=== PATIENT | female | born 1970 | race Caucasian/White ===

== ENCOUNTER 2021-05-03 09:17 | Observation (INO) ==
--- NOTE | 2021-05-03 09:49 | Emergency Department Note ---
History of Present Illness General Chief complaint: Cardiac Assessment Stated complaint: L ARM PAIN Time Seen by Provider: 05/03/21 09:39 History of Present Illness Maximum Pain Intensity: 3 This is a 50-year-old female that presents to the emergency department via private vehicle with complaints of "left arm pain". Patient notes a history of 3 coronary artery stents which were placed in 2011 and 2012. She has been doing well since that time and compliant with her medications. The patient states that over the past few days she has been experiencing left arm discomfort that is intermittent. She also notes pain at times will radiate across her chest. The patient states that the last episode of pain in the left arm was earlier today around 7:30 AM. This lasted about half an hour. It was not exertional. No fevers or chills. Patient denies any pain at the present time. No known trauma or injury. Patient does note that the symptoms she has been experiencing over the past few days are similar to what she had leading up to her stent placements previously. Home Medications Medication Instructions Recorded Confirmed Type aspirin 81 mg tablet,delayed 81 mg PO DAILY 03/09/19 05/03/21 History release atorvastatin 80 mg tablet 80 mg PO QPM #90 tab 10/24/20 05/03/21 Rx lisinopril 20 mg tablet 20 mg PO DAILY #90 tab 10/24/20 05/03/21 Rx metoprolol tartrate 25 mg tablet 12.5 mg PO BID #90 tab 10/24/20 05/03/21 Rx nitroglycerin 0.4 mg sublingual 0.4 mg SL Q5M PRN #25 tab 10/24/20 05/03/21 Rx tablet (Nitrostat) Allergies Allergy/AdvReac Type Severity Reaction Status Date / Time No Known Drug Allergies Allergy Verified 05/03/21 10:43 Past Med/Surg History Medical History Coronary arteriosclerosis in [place] artery (04/03/13) Surgical History Stented coronary artery Family History Denies family history of Ovarian cancer Breast cancer Colorectal cancer Social History Smoking Status: Former smoker Tobacco Type: Cigarettes Hx Alcohol Use: Yes Feels Safe at Home: Yes Review of Systems A total of 10 systems reviewed and were otherwise negative Physical Exam Vital Signs Vital Signs - 24 hr 05/03/21 09:30 05/03/21 10:12 05/03/21 10:20 Temperature 36.7 C Temperature Source Skin Pulse Rate 63 53 L 65 Pulse Rate from SpO2 Sensor 53 L 62 Pulse Rhythm Regular Pulse Strength Normal Respiratory Rate 20 14 18 Respiratory Effort / Characteristics Non-Labored Spontaneous Respiratory Depth Normal Respiratory Pattern Regular Blood Pressure 153/91 H Blood Pressure Mean 111 Pulse Oximetry 95 95 94 Oxygen Delivery Method Room Air Sepsis Recent Fever Within 48 Hours No Sepsis New/Unexplained Change in Mental Status N/A Sepsis Action Taken by Nursing No Action Required 05/03/21 10:30 05/03/21 10:40 05/03/21 10:50 Temperature Temperature Source Pulse Rate 58 L 52 L 53 L Pulse Rate from SpO2 Sensor 55 L 53 L 53 L Pulse Rhythm Pulse Strength Respiratory Rate 17 16 15 Respiratory Effort / Characteristics Respiratory Depth Respiratory Pattern Blood Pressure Blood Pressure Mean Pulse Oximetry 93 96 94 Oxygen Delivery Method Sepsis Recent Fever Within 48 Hours Sepsis New/Unexplained Change in Mental Status Sepsis Action Taken by Nursing 05/03/21 11:00 05/03/21 11:10 Temperature Temperature Source Pulse Rate 51 L 55 L Pulse Rate from SpO2 Sensor 52 L 53 L Pulse Rhythm Pulse Strength Respiratory Rate 28 H 20 Respiratory Effort / Characteristics Respiratory Depth Respiratory Pattern Blood Pressure Blood Pressure Mean Pulse Oximetry 95 97 Oxygen Delivery Method Sepsis Recent Fever Within 48 Hours Sepsis New/Unexplained Change in Mental Status Sepsis Action Taken by Nursing VITAL SIGNS - Vital signs and nursing notes were reviewed. Stable and afebrile. GENERAL - 50-year-old female appearing her stated age who is in no acute distress. Communicates well with provider and answers questions appropriately. SKIN - Without rashes. No meningeal or petechial rash. The skin overlying the left upper extremity is unremarkable. HEAD - NC/AT. EYES - PERRL with EOMI bilaterally. Sclera anicteric. EARS - No deformities of external structures noted on gross examination bilaterally. NOSE - Midline and without cyanosis. No epistaxis or purulent drainage noted. MOUTH/OROPHARYNX - Without perioral cyanosis. NECK - Neck with FROM. No nuchal rigidity. LUNGS - Chest wall symmetric without accessory muscle use, intercostals retractions, or central cyanosis. Normal vesicular breath sounds CTA B/L. No wheezes, rales, or rhonchi appreciated. CARDIAC - RRR with S1/S2. No murmur, rubs, or gallops appreciated. ABDOMEN - Abdominal contour normal without pulsations or visible masses. BS normoactive all four quadrants. No tenderness, palpable masses, hepatosplenomegaly, or ascites noted. EXTREMITIES - No clubbing or peripheral cyanosis. +5/5 strength noted in UE/LE bilaterally. NEUROLOGIC - Cranial nerves II through XII grossly intact. PSYCH - A&O, and cooperates fully with examiner. Pt is very pleasant and interacts well with examiner. Medical Decision Making Laboratory Data Result diagrams: 05/03/21 09:50 05/03/21 09:50 Lab Results 05/03/21 05/03/21 05/03/21 Range/Units 09:50 09:50 09:50 WBC 8.01 (4.8-10.8) K/uL RBC 4.42 (4.2-5.4) M/uL Hgb 14.0 (12.0-16.0) g/dL Hct 41.1 (37-47) % MCV 93.0 (80-100) fL MCH 31.7 (25-34) pg MCHC 34.1 (32-36) g/dL RDW Std Deviation 46.6 H (36.4-46.3) fL RDW Coeff of Nickie 13.7 (11.5-14.5) % Plt Count 292 (130-400) K/uL MPV 10.0 (7.4-10.4) fL Immature Gran % (Auto) 0.2 % Neut % (Auto) 69.5 % Lymph % (Auto) 24.3 % [place] % (Auto) 4.9 % Eos % (Auto) 0.9 % Baso % (Auto) 0.2 % Neut # (Auto) 5.56 (1.4-6.5) K/uL Lymph # (Auto) 1.95 (1.2-3.4) K/uL [place] # (Auto) 0.39 (0.11-0.59) K/uL Eos # (Auto) 0.07 (0-0.5) K/uL Baso # (Auto) 0.02 (0-0.2) K/uL Immature Gran # (Auto) 0.02 (0.00-0.02) K/uL PT 9.8 (9.0-12.0) Seconds INR 1.0 (0.9-1.1) APTT 27.6 (21.0-31.0) Seconds PTT Ratio 1.0 Sodium 140 (136-145) mmol/L Potassium 4.1 (3.5-5.1) mmol/L Chloride 110 H (98-107) mmol/L Carbon Dioxide 24 (21-32) mmol/L Anion Gap 6.0 (3-11) BUN 10 (7-18) mg/dl Creatinine 0.80 (0.6-1.2) mg/dl Est Cr Clr Drug Dosing 98.4 ml/min Est GFR ( Amer) 101.0 ml/min Est GFR (Non-Af Amer) 87.2 ml/min BUN/Creatinine Ratio 12.5 (10-20) Glucose 98 (70-99) mg/dl Calcium 9.0 (8.5-10.1) mg/dl Magnesium 2.2 (1.8-2.4) mg/dl Total Bilirubin 0.4 (0.2-1) mg/dl AST 9 L (15-37) U/L ALT 18 (12-78) Alkaline Phosphatase 131 H (45-117) U/L Troponin I < 0.015 (0-0.045) ng/ml Total Protein 7.3 (6.4-8.2) gm/dl Albumin 3.3 L (3.4-5.0) gm/dl Globulin 4.0 (2.5-4.0) gm/dl Albumin/Globulin Ratio 0.8 L (0.9-2) TSH 1.450 (0.300-4.500) uIu/ml HCG, Qual (Negative) 05/03/21 Range/Units 09:50 WBC (4.8-10.8) K/uL RBC (4.2-5.4) M/uL Hgb (12.0-16.0) g/dL Hct (37-47) % MCV (80-100) fL MCH (25-34) pg MCHC (32-36) g/dL RDW Std Deviation (36.4-46.3) fL RDW Coeff of Nickie (11.5-14.5) % Plt Count (130-400) K/uL MPV (7.4-10.4) fL Immature Gran % (Auto) % Neut % (Auto) % Lymph % (Auto) % [place] % (Auto) % Eos % (Auto) % Baso % (Auto) % Neut # (Auto) (1.4-6.5) K/uL Lymph # (Auto) (1.2-3.4) K/uL [place] # (Auto) (0.11-0.59) K/uL Eos # (Auto) (0-0.5) K/uL Baso # (Auto) (0-0.2) K/uL Immature Gran # (Auto) (0.00-0.02) K/uL PT (9.0-12.0) Seconds INR (0.9-1.1) APTT (21.0-31.0) Seconds PTT Ratio Sodium (136-145) mmol/L Potassium (3.5-5.1) mmol/L Chloride (98-107) mmol/L Carbon Dioxide (21-32) mmol/L Anion Gap (3-11) BUN (7-18) mg/dl Creatinine (0.6-1.2) mg/dl Est Cr Clr Drug Dosing ml/min Est GFR ( Amer) ml/min Est GFR (Non-Af Amer) ml/min BUN/Creatinine Ratio (10-20) Glucose (70-99) mg/dl Calcium (8.5-10.1) mg/dl Magnesium (1.8-2.4) mg/dl Total Bilirubin (0.2-1) mg/dl AST (15-37) U/L ALT (12-78) Alkaline Phosphatase (45-117) U/L Troponin I (0-0.045) ng/ml Total Protein (6.4-8.2) gm/dl Albumin (3.4-5.0) gm/dl Globulin (2.5-4.0) gm/dl Albumin/Globulin Ratio (0.9-2) TSH (0.300-4.500) uIu/ml HCG, Qual Negative (Negative) Imaging Data Radiologist's Impression: Chest X-Ray 05/03/21 09:47 XR chest 1V portable CLINICAL HISTORY: L arm pain. Evaluate cardiopulmonary status COMPARISON STUDY: No previous studies for comparison. TECHNIQUE: 1 view of the chest FINDINGS: Single frontal view of the chest demonstrates the cardiomediastinal silhouette to be within normal limits. The lungs are clear of alveolar opacities. There is no evidence for pleural effusion. There is no evidence for vascular congestion. There is no acute osseous pathology. IMPRESSION: No acute cardiopulmonary disease. ACT 112: Negative or not required by law. Electronically signed by: Gucci Black M.D. 05/03/2021 10:04 AM MDM Narrative Patient was seen and evaluated as above in room C01. Review was performed of nursing notes and vital signs. I did review pertinent previous visits and patient history. After obtaining a thorough history and physical examination the above work up was performed. Patient patient is pain-free at this time. She is resting comfortably. Vital signs stable. Patient presents to us today with a few days of left arm pain. This does feel similar to symptoms she had leading up to her previous heart catheterization and stent placements. Options of care were discussed with the patient. IV access was established. Labs were drawn. No leukocytosis or concerning anemia. No emergent metabolic disturbance. Troponin x1 -. With the patient's heart history it is felt that further evaluation and management in the inpatient setting is warranted. Case discussed with the hospitalist. Please refer to further documentation regarding her stay. Patient amenable to plan of care. Heart Score: 4 EKG was reviewed by myself and found to be sinus bradycardia at a rate of 49 bpm and per my interpretation reveals no ST elevation. QTc 406. QRS 106. This was compared to EKG of April 03, 2013. Second EKG performed at 11:10 AM reveals sinus bradycardia rate of 49 bpm. QTc 446. QRS 104. An order was placed for continuous cardiac monitoring. The monitor shows a rate of 63 with sinus rhythm. GCS: 15 In the evaluation and treatment of this patient, the following differential diagnoses were considered: [place], ASC, Dysrhythmia, Angina, Mediastinitis, GERD, Esophagitis, PE, Pneumonia, Bronchitis, Costochondritis, Rib Fracture, [place], among others. Impression & Plan Arm pain, left, Intermittent chest pain, History of heart artery stent Discharge Plan Visit Data Chief Complaint: Cardiac Assessment Stated Complaint: L ARM PAIN ED Provider: Gustavo Phelps ED Midlevel Provider: Marquez Rodarte Discharge Problem: Arm pain, left, Intermittent chest pain, History of heart artery stent Patient Disposition: Admitted As Inpatient Condition: Good Forms Stand Alone Forms: My [facility] Prescriptions Prescriptions: No Action aspirin 81 mg tablet,delayed release (DR/EC) 81 mg PO DAILY RF: 0 atorvastatin 80 mg tablet 80 mg PO QPM Qty: 90 RF: 3 lisinopril 20 mg tablet 20 mg PO DAILY Qty: 90 RF: 3 metoprolol tartrate 25 mg tablet 12.5 mg PO BID Qty: 90 RF: 3 nitroglycerin [Nitrostat] 0.4 mg tablet, sublingual 0.4 mg SL Q5M PRN (Reason: chest pain) Qty: 25 RF: 5 Referrals Referrals: Anahi Jose CRNP [Primary Care Provider] -
[2021-05-03 10:01] LABS: Basophils # (auto) 0.02 K/uL (0-0.2); Basophils % (auto) 0.2 %; Eosinophils # (auto) 0.07 K/uL (0-0.5); Eosinophils % (auto) 0.9 %; Hematocrit (blood only) 41.1 % (37-47); Immature Granulocytes # (auto) 0.02 K/uL (0.00-0.02); Immature Granulocytes % (auto) 0.2 %; Lymphocytes # (auto) 1.95 K/uL (1.2-3.4); Lymphocytes % (auto) 24.3 %; Mean Corpuscular Hemoglobin 31.7 pg (25-34); Mean Corpuscular Hgb Conc 34.1 g/dL (32-36); Monocytes # (auto) 0.39 K/uL (0.11-0.59); Monocytes % (auto) 4.9 %; Neutrophils # (auto) 5.56 K/uL (1.4-6.5); Neutrophils % (auto) 69.5 %; Platelet Count 292 K/uL (130-400); RDW Coefficient of Variation 13.7 % (11.5-14.5); RDW Standard Deviation 46.6 fL (36.4-46.3); Red Blood Count 4.42 M/uL (4.2-5.4); White Blood Count 8.01 K/uL (4.8-10.8)
--- NOTE | 2021-05-03 10:05 | XRay Report ---
XR chest 1V portable CLINICAL HISTORY: L arm pain. Evaluate cardiopulmonary status COMPARISON STUDY: No previous studies for comparison. TECHNIQUE: 1 view of the chest FINDINGS: Single frontal view of the chest demonstrates the cardiomediastinal silhouette to be within normal li mits. The lungs are clear of alveolar opacities. There is no evidence for pleural effusion. There is no evidence for vascular congestion. There is no acute osseous pathology. IMPRESSION: No acute cardiopulmonary disease. ACT 112: Negative or not required by law. Electronically signed by: Gucci Black M.D. 05/03/2021 10:04 AM
[2021-05-03 10:11] LABS: Partial Thromboplastin Time 27.6 Seconds (21.0-31.0); Prothrombin Time 9.8 Seconds (9.0-12.0)
[2021-05-03 10:19] LABS: Alanine Aminotransferase 18 (12-78); Albumin Level 3.3 gm/dl (3.4-5.0); Aspartate Aminotransferase 9 U/L (15-37); BUN Creatinine Ratio 12.5 (10-20); Blood Urea Nitrogen 10 mg/dl (7-18); Carbon Dioxide 24 mmol/L (21-32); Chloride 110 mmol/L (98-107); Creatinine Clr Calc Pharmacy 98.4 ml/min; Est GFR (Non-African American) 87.2 ml/min; Glucose 98 mg/dl (70-99); Magnesium 2.2 mg/dl (1.8-2.4); Potassium 4.1 mmol/L (3.5-5.1); Sodium 140 mmol/L (136-145)
[2021-05-03 10:21] LABS: Pregnancy Test, Serum Negative (Negative)
[2021-05-03 10:30] LABS: Albumin Globulin Ratio 0.8 (0.9-2); Alkaline Phosphatase 131 U/L (45-117); Bilirubin,Total 0.4 mg/dl (0.2-1); Total Protein 7.3 gm/dl (6.4-8.2); Troponin I < 0.015 ng/ml (0-0.045)
--- NOTE | 2021-05-03 11:29 | History & Physical Report ---
Date of Service May 03, 2021 Assessment & Plan (1) Arm pain, left: (2) Intermittent chest pain: (3) CAD (coronary artery disease): Plan: Mrs. Arzola is 50-year-old female with a history of CAD s/p LAD Drug-Eluting Stent 2011, 2 Mid RCA Drug-Eluting Stents, PDA Drug-Eluting Stent 2012, Incomplete RBBB, and Dyslipidemia who presented acutely to [facility] this morning with possible Angina Pectoris. She describes increased fatigue in recent weeks followed by the development of intermittent left arm pressure that occasionally radiates across her chest to midline, and she has also experienced "indigestion" off and on which is unusual for her. She has tried Tums without relief. Her left arm pressure and occasional chest discomfort seem to come and go at random, are not related to exertion, can last a few minutes up to 30 minutes, and she has not experienced any associated symptoms. She specifically denies any associated nausea, vomiting, diaphoresis, dyspnea, unusual dyspnea on exertion, palpitations, syncope, or near syncope. Her last episode of chest discomfort was this morning at approximately 0730. She is concerned because her symptoms are similar to what she experienced prior to her stent placements in the past. She was previously walking 3 miles 5 times a week during the summer and early fall 2020-- but because she has been feeling the way she is, she has not been exercising routinely since then. She has not noticed a drop-off in her exercise tolerance, but again she is not exercising to any significant extent. Patient remains compliant with her medications and has not had any adverse side effects. Evaluation in emergency room shows that her initial Troponin I is undetectable at < 0.015 ng/mL. Chest x-ray shows no acute cardiopulmonary processes. Her EKG's show sinus bradycardia with an incomplete RBBB, no ST segment deviations. CBC with diff shows normal WBC count. Hemoglobin is 14.0 g/dL, hematocrit is normal at 41.1%. Platelet count 292 K/uL. Serum creatinine is 0.80 ng/mL with a BUN of 10 mg/dL. Chloride is slightly elevated at 110 mmol/L, otherwise electrolytes are within normal limits. TSH is normal. Recommend the following: -- Admit to PCU on telemetry. -- Serial Troponin I levels. -- Serial EKG's and EKG as needed for chest/arm pain. -- Check an Echocardiogram. -- Continue Lopressor 12.5 mg b.i.d.. -- Continue Atorvastatin 80 mg daily. -- Continue Aspirin 81 mg daily. -- Continue Lisinopril 20 mg daily. -- Lovenox at DVT prophylaxis dose. -- If any recurrent chest pain, arm pressure or suspected angina -- convert to Heparin drip, add topical nitrate, use sublingual nitroglycerin. -- If troponin's remain negative we will likely pursue stress echocardiogram tomorrow or could consider cardiac catheterization since her symptoms are reminiscent of prior angina pectoris. -- If troponin I increases, we will pursue cardiac catheterization +/- PCI. (4) History of heart artery stent: Plan: -- CAD s/p Proximal LAD Drug-Eluting Stent 2011 in the setting of unstable angina with new posterior wall motion abnormality. -- Patient presented in Fall 2012 with stable angina pectoris and underwent deployment of 2 Mid RCA Drug-Eluting Stents and a R PDA Drug-Eluting Stent. -- Right femoral artery used for access in 2012 due to severe radial artery spasm during prior heart catheterization in 2011. (5) Dyslipidemia: Plan: Fasting Lipid Panel 10/06/20 showed Total Cholesterol of 125 mg/dL, HDL 41 mg/dL, and an LDL 68 mg/dL. -- Continue Atorvastatin 80 mg daily. History of Present Illness Chief Complaint: -- Intermittent Left Arm Pressure. -- Intermittent Chest Pain. -- CAD s/p LAD Stent 2011, s/p Mid RCA Stents x 2 and PDA Stent in 2012. Primary Care Provider: GAVIN Borrego Mrs. Arzola is 50-year-old female with a history of CAD s/p LAD Drug-Eluting Stent 2011, 2 Mid RCA Drug-Eluting Stents, PDA Drug-Eluting Stent 2012, Incomplete RBBB, and Dyslipidemia who presented acutely to [facility] this morning complaining of increased fatigue in recent weeks followed by the development of intermittent left arm pressure that occasionally radiates across her chest to midline, and she has also experienced "indigestion" off and on which is unusual for her. She has tried Tums without relief. Her left arm pressure and occasional chest discomfort seem to come and go at random, are not related to exertion, can last a few minutes up to 30 minutes, and she has not experienced any associated symptoms. She specifically denies any associated nausea, vomiting, diaphoresis, dyspnea, unusual dyspnea on exertion, palpitations, syncope, or near syncope. She is concerned because her symptoms are similar to what she experienced prior to her stent placement in the past. 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 She was previously walking 3 miles 5 times a week -- but because she has been feeling the way she is, she has not been exercising routinely. She remains compliant with her medications and has not had any adverse side effects. HISTORICAL BACKGROUND: Patient's cardiac history dates back to 2011 when her LAD stent was deployed in the setting of unstable angina with new posterior wall motion abnormality on Echo. She later had recurrent stable angina in the fall and underwent multiple stent placement to her RCA and PDA in March of 2013. CARDIAC CATHETERIZATION (03/2013): -- Right femoral artery used for access due to severe radial artery spasm during prior heart catheterization. -- LMCA -- No significant disease. -- LAD -- Patent proximal stent without significant distal disease. -- LCx -- Minimal mild disease. -- RCA -- Sequential 80% and 70% stenoses in the mid segment. -- R PDA -- 70% ostial stenosis. -- PCI to Mid RCA with 3 0 x 23, 3.0 x 8 Xience drug-eluting stents; PCI to PDA with 2.25 x 8 Xience JAY. -- PCI (03/2012): 3.0 x 33 Xience drug-eluting stent to proximal LAD, post dilated to 3.25 mm. Allergies Allergy/AdvReac Type Severity Reaction Status Date / Time No Known Drug Allergies Allergy Verified 05/03/21 10:43 Home Medications Medication Instructions Recorded Confirmed Type aspirin 81 mg tablet,delayed 81 mg PO DAILY 03/09/19 05/03/21 History release atorvastatin 80 mg tablet 80 mg PO QPM #90 tab 10/24/20 05/03/21 Rx lisinopril 20 mg tablet 20 mg PO DAILY #90 tab 10/24/20 05/03/21 Rx metoprolol tartrate 25 mg tablet 12.5 mg PO BID #90 tab 10/24/20 05/03/21 Rx nitroglycerin 0.4 mg sublingual 0.4 mg SL Q5M PRN #25 tab 10/24/20 05/03/21 Rx tablet (Nitrostat) Past Med/Surg History Medical History CAD (coronary artery disease) Dyslipidemia Hypertension Surgical History (Updated 05/03/21 @ 15:53 by Kirby Serna MD) Stented coronary artery Family History Denies family history of Ovarian cancer Breast cancer Colorectal cancer Social History Smoking Status: Former smoker Tobacco Type: Cigarettes Hx Alcohol Use: No Hx Substance Use: No Preferred Language: Finnish Communication Ability: Effective 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 Physical Exam Physical Exam: GENERAL: Patient in no acute distress. HEENT: Head is atraumatic, normocephalic. Sclerae anicteric. EOM's intact. Facies symmetric. No perioral cyanosis. NECK: No JVD. JVP is not elevated. Carotid upstrokes are + 2 bilaterally without obvious bruits. CHEST/LUNGS: Clear to auscultation throughout all lung alejandre. No wheezes, rales, or crackles. CVS: S1 and S2 are regular, bradycardic at 52 bpm. No obvious murmurs, gallops, or rubs. PMI is nonplpable. No lifts, heaves, or thrills. No abdominal aortic or renal bruits. ABDOMINAL EXAM: Bowel sounds are present. No masses, organomegaly, or tenderness. EXTREMITIES: No clubbing or cyanosis. No edema. Intact posterior tibial and radial pulses bilaterally. Stevo's test is positive for both right radial and right ulnar arterial reflow. Right femoral artery upstroke +2. NEUROLOGIC EXAM: Patient is awake, alert, and oriented. Pleasant and cooperative. Answers questions appropriately. Speech is clear. Normal movement in all 4 extremities. Gait pattern was not assessed. Water Quality Tester shows sinus bradycardia to normal sinus rhythm. EKG 05/03/21 at 11:10:56: -- Sinus bradycardia at 49 bpm, incomplete RBBB. -- When compared to earlier tracing; No significant change. EKG 05/03/21 at 09:40:16: -- Sinus bradycardia at 49 bpm, incomplete RBBB. -- When compared to 04/03/2013 tracing; heart rate has decreased by 32 bpm and incomplete RBBB has replaced a right bundle branch block. Results & Data Results & Data ([facility]) Vital Signs (Past 12 Hours) Vital Signs Temp Pulse Pulse Resp BP BP Pulse Ox 05/03/21 11:12 57 L 57 L 18 141/95 H 96 05/03/21 11:10 55 L 20 97 05/03/21 11:00 51 L 28 H 95 05/03/21 10:50 53 L 15 94 05/03/21 10:40 52 L 16 96 05/03/21 10:30 58 L 17 93 05/03/21 10:20 65 18 94 05/03/21 10:12 53 L 14 95 05/03/21 09:30 36.7 C 63 20 153/91 H 95 Laboratory Results Laboratory Results - last 24 hr 05/03/21 05/03/21 05/03/21 09:50 09:50 09:50 WBC 8.01 RBC 4.42 Hgb 14.0 Hct 41.1 MCV 93.0 MCH 31.7 MCHC 34.1 RDW Std Deviation 46.6 H RDW Coeff of Nickie 13.7 Plt Count 292 MPV 10.0 Immature Gran % (Auto) 0.2 Neut % (Auto) 69.5 Lymph % (Auto) 24.3 [place] % (Auto) 4.9 Eos % (Auto) 0.9 Baso % (Auto) 0.2 Neut # (Auto) 5.56 Lymph # (Auto) 1.95 [place] # (Auto) 0.39 Eos # (Auto) 0.07 Baso # (Auto) 0.02 Immature Gran # (Auto) 0.02 PT 9.8 INR 1.0 APTT 27.6 PTT Ratio 1.0 Sodium 140 Potassium 4.1 Chloride 110 H Carbon Dioxide 24 Anion Gap 6.0 BUN 10 Creatinine 0.80 Est Cr Clr Drug Dosing 98.4 Est GFR ( Amer) 101.0 Est GFR (Non-Af Amer) 87.2 BUN/Creatinine Ratio 12.5 Glucose 98 Calcium 9.0 Magnesium 2.2 Total Bilirubin 0.4 AST 9 L ALT 18 Alkaline Phosphatase 131 H Troponin I < 0.015 Total Protein 7.3 Albumin 3.3 L Globulin 4.0 Albumin/Globulin Ratio 0.8 L TSH 1.450 HCG, Qual SARS-CoV-2, RNA, NAAT 05/03/21 05/03/21 09:50 10:59 WBC RBC Hgb Hct MCV MCH MCHC RDW Std Deviation RDW Coeff of Nickie Plt Count MPV Immature Gran % (Auto) Neut % (Auto) Lymph % (Auto) [place] % (Auto) Eos % (Auto) Baso % (Auto) Neut # (Auto) Lymph # (Auto) Major # (Auto) Eos # (Auto) Baso # (Auto) Immature Gran # (Auto) PT INR APTT PTT Ratio Sodium Potassium Chloride Carbon Dioxide Anion Gap BUN Creatinine Est Cr Clr Drug Dosing Est GFR ( Amer) Est GFR (Non-Af Amer) BUN/Creatinine Ratio Glucose Calcium Magnesium Total Bilirubin AST ALT Alkaline Phosphatase Troponin I Total Protein Albumin Globulin Albumin/Globulin Ratio TSH HCG, Qual Negative SARS-CoV-2, RNA, NAAT Pending Diagnostic Findings CXR 05/03/21: Single frontal view of the chest demonstrates the cardiomediastinal silhouette to be within normal limits. The lungs are clear of alveolar opacities. There is no evidence for pleural effusion. There is no evidence for vascular congestion. There is no acute osseous pathology. IMPRESSION: -- No acute cardiopulmonary disease. Medications Administered Medications aspirin 81 mg tablet,delayed release 81 mg PO DAILY 03/09/19 [History Confirmed 05/03/21] atorvastatin 80 mg tablet 80 mg PO QPM #90 tab 10/24/20 [Rx Confirmed 05/03/21] lisinopril 20 mg tablet 20 mg PO DAILY #90 tab 10/24/20 [Rx Confirmed 05/03/21] metoprolol tartrate 25 mg tablet 12.5 mg PO BID #90 tab 10/24/20 [Rx Confirmed 05/03/21] nitroglycerin 0.4 mg sublingual tablet (Nitrostat) 0.4 mg SL Q5M PRN #25 tab 10/24/20 [Rx Confirmed 05/03/21] Code Status & VTE Plan Code Status Full Code VTE Prophylaxis Plan VTE Prophylaxis will be ordered: Yes Supervising Physician Co-Signing Physician Notes I personally saw and examined the patient. I verified all mora points and agree with Jaime Stern PA-C with the following exceptions and/or additions: 50 year old female admission for chest pain radiating to left arm consistent with her prior CA. Reoccurred again in the emergency room at rest. O/E No acute distress, WD/WN, HS 1+2, no murmurs, Chest CTAB, Abdo SNT calves SNT A/P NSTEMI vs. unstable angina - history consistent with this. Started on heparin IV low dose bolus and drip, ASA 324mg PO and nitro paste. Discussed with Dr Malik and patient will be taken to the labor commissioner today. Appreciate ongoing cariology management. PG Care Time/CCT Total # of Minutes Spent Total Time Spent with Patient: Total time spent is greater than 50% in coordination of care (as documented) at patient's floor/unit and/or counseling patient:35 Coding Level of Care Code INT OBSERVATION CARE 70M LVL 3 Diagnoses Arm pain, left M79.602 Intermittent chest pain R07.9 CAD (coronary artery disease) I25.10 History of heart artery stent Z95.5 Dyslipidemia E78.5 Time Spent (min) 55
[2021-05-03] MEDS ORDERED: ASPIRIN CHEW 324 MG PO STA (12:19)
[2021-05-03] MEDS ORDERED: NITROGLYCERIN 2% OINTMENT 30GM TUBE EXT SCH (12:30)
[2021-05-03] MEDS ORDERED: HEPARIN SOD (PORCINE) 1000 UNIT/ML IV ONE (12:33)
[2021-05-03] MEDS ORDERED: HEPARIN 25000 UNIT/500 ML D5W IV ONE (12:38)
[2021-05-03] MEDS ORDERED: HEPARIN SOD (PORCINE) 1000 UNIT/ML ONE (12:46)
[2021-05-03] MEDS: Heparin IV Adult Wt-Based Low-Dose WITH Bolus Protocol IV SCH ×2 (12:54→13:44)
[2021-05-03] MEDS ORDERED: HEPARIN SODIUM/DEXTROSE 25,000 UNITS/500 ML BAG IV SCH (13:30)
[2021-05-03] MEDS ORDERED: fentaNYL citrate 100 MCG/2 ML VIAL ONE (15:28)
[2021-05-03] MEDS ORDERED: niCARdipine HCL INJ 2.5 MG/ML 10 ML AMP ONE (15:28)
[2021-05-03] MEDS ORDERED: NITROGLYCERIN/D5W 100MCG/ML 20ML SYR ONE (15:28)
[2021-05-03] MEDS ORDERED: HEPARIN (PORCINE) 1000 UNIT/ML 10 ML (CATH LAB USE ONLY) ONE (15:28)
[2021-05-03] MEDS ORDERED: MIDAZOLAM HCL 1 MG/ML 2ML VIAL ONE (15:28)
[2021-05-03] MEDS ORDERED: NITROGLYCERIN SL 0.4 MG/TAB TAB SL PRN (15:31)
[2021-05-03] MEDS ORDERED: ZOLPIDEM TARTRATE 5 MG TAB PO PRN (15:31)
[2021-05-03] MEDS ORDERED: MoRPHine SULFATE 2 MG/ML CARP IV PRN (15:31)
[2021-05-03] MEDS ORDERED: MAGNESIUM HYDROXIDE SUSP 30 ML UDC PO PRN (15:31)
[2021-05-03] MEDS ORDERED: ENOXAPARIN INJ 40 MG/0.4 ML SYR SQ SCH (15:31)
[2021-05-03] MEDS ORDERED: ONDANSETRON INJ 2 MG/ML 2 ML VIAL IV PRN (15:31)
[2021-05-03] MEDS ORDERED: POLYETHYLENE (MIRALAX) 17 GM PACK PO PRN (15:31)
[2021-05-03] MEDS ORDERED: ALUMINUM/MAGNESIUM SUSP 30 ML UDC PO PRN (15:31)
--- NOTE | 2021-05-03 15:48 | Cardiology Consultation ---
Date of Consultation May 03, 2021 Assessment & Plan (1) Unstable angina: (2) CAD (coronary artery disease): (3) Stented coronary artery: (4) Dyslipidemia: (5) Hypertension: ASSESSMENT/PLAN: 1. Unstable angina: Symptoms are concerning for crescendo angina including rest symptoms today. Symptoms resolved with nitroglycerin paste. Thus far, troponins are undetectable, ECG without dynamic changes, and echo with normal wall motion. Symptoms are the same as prior angina. On heparin drip as per admitting service. Received aspirin 324 mg p.o. x1. Well beta blocked. Recommend cardiac catheterization. Risks and benefits discussed with her in detail. She was made aware that CT surgery is not available at this facility. She is agreeable to proceed with cardiac catheterization and PCI, if deemed appropriate. 2. CAD s/p LAD, RCA, PDA PCI: Symptoms consistent with prior angina as noted above. Continue aspirin 81 mg daily indefinitely. Continue beta-shamika as tolerated. Continue high-intensity statin therapy. Plan as above. 3. Hypertension: Blood pressure mildly elevated. Can adjust antihypertensive agents if necessary following catheterization. 4. Dyslipidemia: Continue high-intensity statin therapy. 5. Disposition: Cardiac catheterization pending. Plan of care discussed with admitting hospitalist service, Mr. Stern and Dr. Veliz. Highly complex medical issues. Thank you for allowing me to participate in the care of your patient. Please talat l for any other questions or concerns. Sincerely, Jw Serna M.D. History of Present Illness Reason for Consultation: Unstable angina Requesting Physician: Mr. Ramseyeler Attending Physician: Aleksey Veliz MD History of Present Illness Mrs. Arzola is a very pleasant 50-year-old female with a history significant for multivessel CAD s/p LAD, RCA, PDA PCI, hypertension, and dyslipidemia. Her primary credit historian is Dr. Buchanan. In 2011 she developed unstable angina and underwent lad PCI with 3 x 33 mm Xience JAY. In 2012, she developed repeat angina and underwent PCI of mid RCA with 3 x 23 and 3 x 8 mm Xience JAY, including PCI of PDA with 2.25 x 8 mm Xience JAY. Each time she had PCI, her symptoms completely resolved. Angina was described as left chest and left arm tightness/pressure. Over the past week, she developed similar symptoms. Initially symptoms began only with exertion such as carrying the laundry up a flight of stairs. Symptoms would begin in her left arm described as a pressure that would radiate to the substernal area of her chest. She also has been feeling much more tired, which also occurred in 2011 and 2012 prior to PCI. Symptomshave increased in frequency and with less exertion. Symptoms last up to 20 minutes before spontaneously resolving. She developed symptoms last night while walking in a store. She had more symptoms today when simply walking about her house. There is associated dyspnea with more strenuous activity. When she came to the emergency department, she was free from symptoms but developed left arm pressure while laying in her bed. Nitroglycerin paste was applied which quickly resolved her symptoms. She has not had any recurrent symptoms since then. She denies syncope, near-syncope, palpitations, edema, shortness of breath at rest, orthopnea, melena, hematochezia, hematuria, or other bleeding. Review of systems: As above. Review of systems otherwise negative/unre markable. Family history: Father had CT in late 30s and underwent CABG. Mother had CT in her 60s and underwent CABG. Social history: She quit smoking in 2011 after smoking 0.5 pack per day. Rare alcohol. No drugs. Lives at home with her and 2 adult children. 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 She was unaccompanied in her ER room. Allergies Allergy/AdvReac Type Severity Reaction Status Date / Time No Known Drug Allergies Allergy Verified 05/03/21 10:43 Home Medications Medication Instructions Recorded Confirmed Type aspirin 81 mg tablet,delayed 81 mg PO DAILY 03/09/19 05/03/21 History release atorvastatin 80 mg tablet 80 mg PO QPM #90 tab 10/24/20 05/03/21 Rx lisinopril 20 mg tablet 20 mg PO DAILY #90 tab 10/24/20 05/03/21 Rx metoprolol tartrate 25 mg tablet 12.5 mg PO BID #90 tab 10/24/20 05/03/21 Rx nitroglycerin 0.4 mg sublingual 0.4 mg SL Q5M PRN #25 tab 10/24/20 05/03/21 Rx tablet (Nitrostat) Patient History Medical History CAD (coronary artery disease) Dyslipidemia Hypertension Surgical History (Updated 05/03/21 @ 15:53 by Kirby Serna MD) Stented coronary artery Family History Denies family history of Ovarian cancer Breast cancer Colorectal cancer Social History Smoking Status: Former smoker Tobacco Type: Cigarettes Hx Alcohol Use: Yes Hx Substance Use: No Feels Safe at Home: Yes Physical Exam Physical Exam: Gen.: No acute distress. Alert and oriented. HEENT: Anicteric sclera. Neck: No JVD. No bruits. Normal carotid upstrokes bilaterally. Cardiac: PMI was nonpalpable. No ventricular heave. Regular in the upper 50s. Normal S1-S2. No murmurs, rubs, or gallops. Pulmonary: Clear to auscultation bilaterally without wheezes, rales, or rhonchi. Abdomen: Soft, nontender, nondistended, with normoactive bowel sounds. No bruits noted. Extremities: 2+ radial pulses bilaterally. 2+ posterior tibialis pulses bilaterally. No edema or cyanosis. Psychiatric: Affect appears appropriate. Chest: Nontender to palpation. Results & Data ([facility]) Vital Signs (Past 12 Hours) Vital Signs Temp Pulse Pulse Resp BP BP Pulse Ox 05/03/21 15:10 57 L 15 95 05/03/21 15:00 58 L 17 146/94 H 95 05/03/21 14:50 64 19 96 05/03/21 14:30 46 L 15 98 05/03/21 14:20 56 L 15 95 05/03/21 14:10 53 L 13 96 05/03/21 14:00 58 L 22 05/03/21 13:50 53 L 18 97 05/03/21 13:40 61 14 96 05/03/21 13:30 52 L 18 05/03/21 13:20 50 L 14 98 05/03/21 13:10 54 L 19 96 05/03/21 13:00 52 L 21 05/03/21 12:50 50 L 16 97 05/03/21 12:40 54 L 18 97 05/03/21 12:30 51 L 18 05/03/21 12:20 56 L 18 96 05/03/21 12:10 50 L 13 05/03/21 12:00 52 L 18 05/03/21 11:50 67 21 05/03/21 11:40 55 L 16 96 05/03/21 11:30 50 L 12 05/03/21 11:20 50 L 15 96 05/03/21 11:12 57 L 57 L 18 141/95 H 96 05/03/21 11:10 55 L 20 97 05/03/21 11:00 51 L 28 H 95 05/03/21 10:50 53 L 15 94 05/03/21 10:40 52 L 16 96 05/03/21 10:30 58 L 17 93 05/03/21 10:20 65 18 94 05/03/21 10:12 53 L 14 95 05/03/21 09:30 36.7 C 63 20 153/91 H 95 Laboratory Results Laboratory Results - last 24 hr 05/03/21 05/03/21 05/03/21 09:50 09:50 09:50 WBC 8.01 RBC 4.42 Hgb 14.0 Hct 41.1 MCV 93.0 MCH 31.7 MCHC 34.1 RDW Std Deviation 46.6 H RDW Coeff of Nickie 13.7 Plt Count 292 MPV 10.0 Immature Gran % (Auto) 0.2 Neut % (Auto) 69.5 Lymph % (Auto) 24.3 [place] % (Auto) 4.9 Eos % (Auto) 0.9 Baso % (Auto) 0.2 Neut # (Auto) 5.56 Lymph # (Auto) 1.95 [place] # (Auto) 0.39 Eos # (Auto) 0.07 Baso # (Auto) 0.02 Immature Gran # (Auto) 0.02 PT 9.8 INR 1.0 APTT 27.6 PTT Ratio 1.0 Sodium 140 Potassium 4.1 Chloride 110 H Carbon Dioxide 24 Anion Gap 6.0 BUN 10 Creatinine 0.80 Est Cr Clr Drug Dosing 98.4 Est GFR ( Amer) 101.0 Est GFR (Non-Af Amer) 87.2 BUN/Creatinine Ratio 12.5 Glucose 98 Calcium 9.0 Magnesium 2.2 Total Bilirubin 0.4 AST 9 L ALT 18 Alkaline Phosphatase 131 H Troponin I < 0.015 Total Protein 7.3 Albumin 3.3 L Globulin 4.0 Albumin/Globulin Ratio 0.8 L TSH 1.450 HCG, Qual SARS-CoV-2, RNA, NAAT 05/03/21 05/03/21 09:50 10:59 WBC RBC Hgb Hct MCV MCH MCHC RDW Std Deviation RDW Coeff of Nickie Plt Count MPV Immature Gran % (Auto) Neut % (Auto) Lymph % (Auto) [place] % (Auto) Eos % (Auto) Baso % (Auto) Neut # (Auto) Lymph # (Auto) [place] # (Auto) Eos # (Auto) Baso # (Auto) Immature Gran # (Auto) PT INR APTT PTT Ratio Sodium Potassium Chloride Carbon Dioxide Anion Gap BUN Creatinine Est Cr Clr Drug Dosing Est GFR ( Amer) Est GFR (Non-Af Amer) BUN/Creatinine Ratio Glucose Calcium Magnesium Total Bilirubin AST ALT Alkaline Phosphatase Troponin I Total Protein Albumin Globulin Albumin/Globulin Ratio TSH HCG, Qual Negative SARS-CoV-2, RNA, NAAT NEGATIVE Diagnostic Findings Cardiac catheterization report 04/03/2013 reviewed: Lad luminal irregularities. Proximal/mid LAD stent patent. Om 2 inferior branch 10-20%. Mid RCA sequential 80 and 70% stenotic lesions. Ostial PDA 70%. Underwent mid RCA PCI with 3 x 23 and 3 x 8 mm Xience JAY. PDA PCI with 2.25 x 8 mm Xience JAY. Echo 05/03/2021 preliminary review: Normal LV systolic function. Normal wall motion. No significant valvular abnormalities. ECGs personally reviewed: ECG 05/03/2021 at 11:10 a.m.: Sinus bradycardia 49 beats per minute. Incomplete RBBB. ECG 05/03/2021 at 9:40 a.m.: Sinus bradycardia 49 beats per minute. Incomplete RBBB. Inferior T-wave abnormality. Medications Administered Current Inpatient Medications Acetaminophen (Acetaminophen 325 Mg Tab) 650 mg PO Q4H PRN PRN Reason: Pain or Fever Stop: 06/02/21 15:30 Al Hydrox/Mg Hydrox/Simethicone (Aluminum/Magnesium Susp 30 Ml Udc) 15 ml PO Q4H PRN PRN Reason: Dyspepsia Stop: 06/02/21 15:30 Aspirin (Aspirin 81 Mg Ectab) 81 mg PO DAILY FORTINO Stop: 06/03/21 08:59 Atorvastatin Calcium (Atorvastatin 40 Mg Tab) 80 mg PO QPM FORTINO Stop: 06/02/21 20:59 Heparin Sodium/Dextrose (Heparin Sodium/Dextrose) 25,000 units in 500 mls @ 17 mls/hr IV .Q24H [facility]; Protocol Stop: 06/02/21 13:29 Last Admin: 05/03/21 13:43 Dose: Not Given Documented by: Lisinopril (Lisinopril 20 Mg Tab) 20 mg PO DAILY [facility] Stop: 06/03/21 08:59 Magnesium Hydroxide (Magnesium Hydroxide Susp 30 Ml Udc) 30 ml PO Q12H PRN PRN Reason: Constipation Stop: 06/02/21 15:30 Metoprolol Tartrate (Metoprolol Tartrate 25 Mg Tab) 12.5 mg PO BID [facility] Stop: 06/02/21 20:59 Morphine Sulfate (Morphine Sulfate 2 Mg/Ml Carp) 2 mg IV Q30M PRN PRN Reason: Chest Pain Stop: 05/17/21 15:30 Nitroglycerin (Nitroglycerin 2% Ointment 30gm Tube) 1 inch EXT Q6H [facility] Stop: 06/02/21 12:29 Last Admin: 05/03/21 12:40 Dose: 1 inch Documented by: Nitroglycerin (Nitroglycerin Sl 0.4 Mg/Tab Tab) 0.4 mg SL Q5M PRN PRN Reason: chest pain Stop: 06/02/21 15:30 Ondansetron HCl (Ondansetron Inj 2 Mg/Ml 2 Ml Vial) 4 mg IV Q6H PRN PRN Reason: Nausea Stop: 06/02/21 15:30 Polyethylene Glycol (Polyethylene (Miralax) 17 Gm Pack) 17 gm PO DAILY PRN PRN Reason: Constipation Stop: 06/02/21 15:30 Zolpidem Tartrate (Zolpidem Tartrate 5 Mg Tab) 5 mg PO HS PRN PRN Reason: Sleep Stop: 06/02/21 15:30 PG Care Time/CCT Total # of Minutes Spent Total Time Spent with Patient: Total time spent is greater than 50% in coordination of care (as documented) at patient's floor/unit and/or counseling patient: Coding Level of Care Code 83628 Office/OBS Consult Lvl 5 Diagnoses CAD (coronary artery disease) I25.10 Stented coronary artery Z95.5 Dyslipidemia E78.5 Unstable angina I20.0 Hypertension I10
--- NOTE | 2021-05-03 16:02 | Pre Anesthesia Assessment ---
Date of Service May 03, 2021 Pre Sedation Assessment Vital Signs Temp Pulse Pulse Resp BP BP Pulse Ox 05/03/21 15:10 57 L 15 95 05/03/21 15:00 58 L 17 146/94 H 95 05/03/21 14:50 64 19 96 05/03/21 14:30 46 L 15 98 05/03/21 14:20 56 L 15 95 05/03/21 14:10 53 L 13 96 05/03/21 14:00 58 L 22 05/03/21 13:50 53 L 18 97 05/03/21 13:40 61 14 96 05/03/21 13:30 52 L 18 05/03/21 13:20 50 L 14 98 05/03/21 13:10 54 L 19 96 05/03/21 13:00 52 L 21 05/03/21 12:50 50 L 16 97 05/03/21 12:40 54 L 18 97 05/03/21 12:30 51 L 18 05/03/21 12:20 56 L 18 96 05/03/21 12:10 50 L 13 05/03/21 12:00 52 L 18 05/03/21 11:50 67 21 05/03/21 11:40 55 L 16 96 05/03/21 11:30 50 L 12 05/03/21 11:20 50 L 15 96 05/03/21 11:12 57 L 57 L 18 141/95 H 96 05/03/21 11:10 55 L 20 97 05/03/21 11:00 51 L 28 H 95 05/03/21 10:50 53 L 15 94 05/03/21 10:40 52 L 16 96 05/03/21 10:30 58 L 17 93 05/03/21 10:20 65 18 94 05/03/21 10:12 53 L 14 95 05/03/21 09:30 36.7 C 63 20 153/91 H 95 Cardiovascular + bradycardic Respiratory normal respiratory effort, lungs clear to auscultation Pre-Sedation Airway Assessment Smoking Status: Former smoker Short, Thick Neck: No Thyromental Distance: < 3.5 Finger Breadths Oral Cavity: + WNL Mallampati Class: III ASA: ASA3 NPO Status Date of Last Intake of Fluids: 05/03/21 Time of Last Intake of Fluids: 07:30 Date of Last Intake of Solid Food: 05/03/21 Time of Last Intake of Solid Foods: 07:30 Procedure Planning Contraindications for Sedation: none Current Medications Reviewed: Yes Notes The planned sedation has been discussed with the patient. Informed Consent was obtained. I have identified the patient, determined the appropriateness of sedation and have assessed the patient immediately prior to the procedure. All medicine(s) and interventions are by my order.
--- NOTE | 2021-05-03 16:41 | Cardiac Catheterization ---
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 Cardiac Status Clinical evaluation leading to the procedure CAD Presenation: Unstable angina Anginal Classification: CCS IV Heart Failure: No Cardiogenic Shock within 24 Hours: No Cardiac Arrest within 24 Hours: No Imaging Studies Past 6 Months: Yes Stress Studies Past 6 Months: No Coronary Anatomy Dominant: Right Left Ventricular Angiography EF (%): n/a Diagnostic Physicians Name: Kirby Serna MD Status: Elective Closure Device Percutaneous Entry Location: Radial Closure Device: Radial Band Recommendations: Management Recommendatons Cardiac Cath Procedure Full Procedure Date May 03, 2021 Pre-Procedure Diagnosis Pre-Procedure Diagnosis: Angina and CAD AUC Score AUC Score: 7 Post-Procedure Diagnosis Post-Procedure Diagnosis: Mild CAD and Normal Intracardiac Pressures Procedure(s) Performed Procedure(s) Performed: Coronary Angiography and Left Heart Cath Associate Technician Kirby Serna MD Mva Operator(s) [place]ell Estimated Blood Loss Estimated Blood Loss: < 25 ml Medication(s) Medication(s): Fentanyl, Heparin, Lidocaine 1%, Nicardipine and Versed Summary of Findings Procedures: 1. Coronary angiography 2. Left heart catheterization 3. Moderate sedation Indication: 50-year-old female with a history significant for CAD and prior LAD, RCA, PDA stents who presented with symptoms concerning for unstable angina, consistent with previous angina. Coronary angiography: 1. Left main: Short vessel. No significant CAD. 2. Left anterior descending: Large caliber vessel. Proximal LAD 10 to 20%. Mid LAD stent patent with 10 to 20% in-stent restenosis within the distal stent. D1 and D2 without significant CAD. 3. Circumflex: Large caliber vessel. Circumflex without significant CAD. OM1 without significant CAD. OM 2 branches and inferior branch has 30% stenosis. 4. Right coronary artery: RCA is dominant. Mid RCA stents with luminal irregularities. Distal RCA luminal irregularities. Distal RCA 30 to 40%, just before bifurcation of PDA and PL. PL small. PDA proximal stent is patent. Left heart catheterization: 1. Left ventriculography was not performed. 2. No significant aortic stenosis. 3. Normal LVEDP; 7 mmHg. Moderate sedation: 1. Sedation start time: 1611 2. Sedation end time: 1639 Impression: 1. Nonobstructive CAD. 2. LAD, RCA, PDA stents with up to mild in-stent restenosis. 3. Normal left-sided filling pressure. 4. No significant aortic stenosis. Plan: 1. Continue risk factor modification. 2. Consider oral nitrate therapy for symptoms consistent with prior angina. Cannot exclude microvascular disease or spasm. 3. Consider noncardiac causes of chest discomfort. 4. Continue to follow with primary optical store manager, Dr. Buchanan. Hemodynamics Rest Ao:: 101/61 Final Ao: 124/74 LV: 115/0/7 Recommendations Recommendations: Management Recommendatons Specimens Specimens: None Radiation Exposure (mGy) 1262 mGy. Fluoro time 5.5 min. Contrast (mls) 30 ml Procedural Complication(s) None Disposition PCU I attest to the content of the Intraoperative Record and any orders documented therein. Any exceptions are noted below. [facility] Card Cath Procedure Codes Cardiac Catheterization Procedure 1: Cardiovascular Cath Procedures: 33109 Coronaries and LHC (+/-LV) Moderate Sedation Procedure 1: Sedation/Anesthesia: 02690 Mod Sedation by the same physician;Init15 Min Child Age 5 & Up Procedure 2: Sedation/Anesthesia: 34904 Mod Sedation by the same physician; Ea [id number] Minutes PG Care Time/CCT Total # of Minutes Spent Total Time Spent with Patient: Total time spent is greater than 50% in coordination of care (as documented) at patient's floor/unit and/or counseling patient:
--- NOTE | 2021-05-03 16:59 | Post Anesthesia Assessment ---
Date of Service May 03, 2021 Post Sedation Assessment Vital Signs Temp Pulse Pulse Resp BP BP Pulse Ox 05/03/21 15:10 57 L 15 95 05/03/21 15:00 58 L 17 146/94 H 95 05/03/21 14:50 64 19 96 05/03/21 14:30 46 L 15 98 05/03/21 14:20 56 L 15 95 05/03/21 14:10 53 L 13 96 05/03/21 14:00 58 L 22 05/03/21 13:50 53 L 18 97 05/03/21 13:40 61 14 96 05/03/21 13:30 52 L 18 05/03/21 13:20 50 L 14 98 05/03/21 13:10 54 L 19 96 05/03/21 13:00 52 L 21 05/03/21 12:50 50 L 16 97 05/03/21 12:40 54 L 18 97 05/03/21 12:30 51 L 18 05/03/21 12:20 56 L 18 96 05/03/21 12:10 50 L 13 05/03/21 12:00 52 L 18 05/03/21 11:50 67 21 05/03/21 11:40 55 L 16 96 05/03/21 11:30 50 L 12 05/03/21 11:20 50 L 15 96 05/03/21 11:12 57 L 57 L 18 141/95 H 96 05/03/21 11:10 55 L 20 97 05/03/21 11:00 51 L 28 H 95 05/03/21 10:50 53 L 15 94 05/03/21 10:40 52 L 16 96 05/03/21 10:30 58 L 17 93 05/03/21 10:20 65 18 94 05/03/21 10:12 53 L 14 95 05/03/21 09:30 36.7 C 63 20 153/91 H 95 Recovery Score Activity: Moves 4 extremities Respiration: Deep Breath/Cough Circulation: +/-20% PreAnes Value Consciousness: Fully Awake Oxygen Saturation: > 92% On Room Air Discharge Sedation Level of Care: Fast Track Phase II Post Sedation Plan On clinical assessment, the patient appears to have tolerated the sedation without complications. Patient is recovering as anticipated. Patient will continue to be monitored by nursing and may be discharged when sedation discharge criteria are met per below protocol. Upon Completions of procedure up to 15 minutes continue every 5 minute vital signs and the P.A.R. score; then discharge to a Phase I or Fast Track to Phase II per the following guidelines: * Discharge Patient to appropriate Phase II area if PAR is 8 or greater or return to pre- procedure baseline. The post - procedure orders will be as directed. * If PAR score is less than 8 or not return to pre-procedure baseline then patient will follow Phase I monitoring till PAR is reached for Phase II. The Phase I may be done in procedure room or may call to secure a Phase I area. * If naloxone or flumazenil are used for reversal, hold in Phase I for continued monitoring from when last reversal dose was given for a minimum of 60 minutes or longer pending the nurse and/or physician discretion of patient condition before discharge to Phase II. Please call the Sedation Physician to re-evaluate and complete post-note for discharge to Phase II area. Do NOT discharge from procedure sedation or Phase 1 until post- sedation evaluation note is complete by procedure /sedation MD Sedation Discharge Instructions to be given to the patient at discharge to home.
[2021-05-03] MEDS ORDERED: SODIUM CHLORIDE 0.9% 1000ML 1,000 ML IV SCH (17:00)
[2021-05-03] MEDS ORDERED: ISOSORBIDE MONO EXTENDED REL 30 MG TABCR PO ONE (17:15)
--- NOTE | 2021-05-03 19:06 | XCELERA ---
[id number]
[2021-05-03] MEDS: ACETAMINOPHEN 325 MG TAB PO PRN (19:23)
[2021-05-03] MEDS: METOPROLOL TARTRATE 25 MG TAB PO SCH (20:41)
[2021-05-03] MEDS ORDERED: ATORVASTATIN 40 MG TAB PO SCH (21:00)
[2021-05-03] MEDS ORDERED: traMADol HCL 50 MG TABLET PO STA (22:28)
[2021-05-04 07:42] LABS: Basophils # (auto) 0.01 K/uL (0-0.2); Basophils % (auto) 0.1 %; Eosinophils # (auto) 0.03 K/uL (0-0.5); Eosinophils % (auto) 0.3 %; Hematocrit (blood only) 35.9 % (37-47); Hemoglobin 12.2 g/dL (12.0-16.0); Immature Granulocytes # (auto) 0.02 K/uL (0.00-0.02); Immature Granulocytes % (auto) 0.2 %; Lymphocytes # (auto) 2.48 K/uL (1.2-3.4); Lymphocytes % (auto) 27.4 %; Mean Corpuscular Hemoglobin 31.3 pg (25-34); Mean Corpuscular Volume 92.1 fL (80-100); Mean Platelet Volume 10.1 fL (7.4-10.4); Monocytes # (auto) 0.44 K/uL (0.11-0.59); Monocytes % (auto) 4.9 %; Neutrophils # (auto) 6.06 K/uL (1.4-6.5); Neutrophils % (auto) 67.1 %; Platelet Count 249 K/uL (130-400); RDW Coefficient of Variation 13.6 % (11.5-14.5); RDW Standard Deviation 45.9 fL (36.4-46.3); White Blood Count 9.04 K/uL (4.8-10.8)
[2021-05-04 08:12] LABS: BUN Creatinine Ratio 17.9 (10-20); Calcium 8.2 mg/dl (8.5-10.1); Est GFR (African American) 109.2 ml/min; Est GFR (Non-African American) 94.3 ml/min
[2021-05-04] MEDS ORDERED: lisinopril 20 MG TAB PO SCH (09:00)
[2021-05-04] MEDS ORDERED: ASPIRIN 81 MG ECTAB PO SCH (09:00)
[2021-05-04] MEDS ORDERED: ISOSORBIDE MONO EXTENDED REL 30 MG TABCR PO SCH (09:00)
--- NOTE | 2021-05-04 09:30 | Cardiology Progress Note ---
Date of Service May 04, 2021 Assessment & Plan (1) CAD (coronary artery disease): Plan: 2. Hypertension 3. Dyslipidemia Feeling well. Cardiac cath, Echo reassuring. From a cardiac standpoint OK with discharge this morning. Continue home meds. Trial of imdur for coronary vasospasm. If recurrent headaches at home OK to stop. Follow-up with cardiology 1-2 months. Admission and Anticipated Discharge Date Admission Date: May 03, 2021 Subjective Feeling well. No recurrent chest pain. Had Imdur last night. Had some associated headache, nausea. Tele reviewed -- no events. Review of Systems Review of Systems: All systems reviewed & are unremarkable except as noted in HPI & below Physical Exam Physical Exam: General: Comfortable HEENT: Sclerae anicteric, Mask in place Lungs: Clear to auscultation bilaterally Cardiac: Regular rate and rhythm, no murmurs. Vascular: 2+ radial, no hematoma or ecchymosis Abdomen: Soft Extremities: Well perfused Neuro: Nonfocal Psych: Alert orient x3, normal affect and mood Results & Data ([facility]) Vital Signs (Past 12 Hours) Vital Signs Temp Pulse Pulse Pulse Resp BP BP 05/04/21 03:22 97.9 F 59 L 101/64 05/04/21 02:01 97.9 F 50 L 108/69 05/04/21 01:13 97.9 F 55 L 16 96/57 L 05/04/21 00:02 55 L 05/03/21 21:45 97.7 F 69 18 111/70 Pulse Ox 05/04/21 03:22 93 05/04/21 02:01 93 05/04/21 01:13 93 05/04/21 00:02 05/03/21 21:45 93 PG Care Time/CCT Total # of Minutes Spent Total Time Spent with Patient: Total time spent is greater than 50% in coordination of care (as documented) at patient's floor/unit and/or counseling patient: Coding Level of Care Code 93976 Subseq Hosp Care Lvl 2 Diagnoses CAD (coronary artery disease) I25.10
[2021-05-04] MEDS: METOPROLOL TARTRATE 25 MG TAB PO SCH (09:42)
--- NOTE | 2021-05-04 10:58 | Electrocardiogram Report ---
Test Reason : Blood Pressure : / mmHG Vent. Rate : 049 BPM Atrial Rate : 049 BPM P-R Int : 134 ms QRS Dur : 120 ms QT Int : 450 ms P-R-T Axes : 042 -12 005 degrees QTc Int : 406 ms Sinus bradycardia Right bundle branch block When compared with ECG of 03-APR-2013 14:19, Vent. rate has decreased BY 32 BPM Confirmed by Kirby Serna ([id number]) on 05/04/2021 10:58:14 AM Referred By: REFERRED SELF Confirmed By:Kirby Serna
[2021-05-04] MEDS: ACETAMINOPHEN 325 MG TAB PO PRN (11:42)
--- NOTE | 2021-05-04 19:02 | Discharge Summary ---
Date of Service May 04, 2021 Admission HPI Per Admitting Provider Mrs. Arzola is 50-year-old female with a history of CAD s/p LAD Drug-Eluting Stent 2011, 2 Mid RCA Drug-Eluting Stents, PDA Drug-Eluting Stent 2012, Incomplete RBBB, and Dyslipidemia who presented acutely to [facility] ER this morning complaining of increased fatigue in recent weeks followed by the development of intermittent left arm pressure that occasionally radiates across her chest to midline, and she has also experienced "indigestion" off and on which is unusual for her. She has tried Tums without relief. Her left arm pressure and occasional chest discomfort seem to come and go at random, are not related to exertion, can last a few minutes up to 30 minutes, and she has not experienced any associated symptoms. She specifically denies any associated nausea, vomiting, diaphoresis, dyspnea, unusual dyspnea on exertion, palpitations, syncope, or near syncope. She is concerned because her symptoms are similar to what she experienced prior to her stent placement in the past. 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 She was previously walking 3 miles 5 times a week -- but because she has been feeling the way she is, she has not been exercising routinely. She remains compliant with her medications and has not had any adverse side effects. HISTORICAL BACKGROUND: Patient's cardiac history dates back to 2011 when her LAD stent was deployed in the setting of unstable angina with new posterior wall motion abnormality on Echo. She later had recurrent stable angina in the fall and underwent multiple stent placement to her RCA and PDA in March of 2013. CARDIAC CATHETERIZATION (03/2013): -- Right femoral artery used for access due to severe radial artery spasm during prior heart catheterization. -- LMCA -- No significant disease. -- LAD -- Patent proximal stent without significant distal disease. -- LCx -- Minimal mild disease. -- RCA -- Sequential 80% and 70% stenoses in the mid segment. -- R PDA -- 70% ostial stenosis. -- PCI to Mid RCA with 3 0 x 23, 3.0 x 8 Xience drug-eluting stents; PCI to PDA with 2.25 x 8 Xience JAY. -- PCI (03/2012): 3.0 x 33 Xience drug-eluting stent to proximal LAD, post dilated to 3.25 mm. Principal Diagnosis Chest painsmall vessel disease versus vasospasm Discharge Exam In general she is awake and alert pleasant no distress. HEENT normocephalic atraumatic mucous membranes moist. Breathing unlabored no accessory muscle use good effort. Skin shows no rashes no pallor or icterus. Neuro without focal deficits. Discharge Data Allergies Allergy/AdvReac Type Severity Reaction Status Date / Time No Known Drug Allergies Allergy Verified 05/03/21 10:43 Consultations 05/03/21 10:46 ED Decision to Admit Stat 05/03/21 13:49 Consult Cardiology Stat Procedures Performed Operation Date: 05/03/21 15:30 Actual Procedures p Cath, Left with Cors and Vent - Kirby Serna MD s Cineradiography w/Routine Exam - Kirby Serna MD Ordered Studies 05/03/21 15:30 CL Cath Imgs for PACS use only Stat Hospital Course (1) Intermittent chest pain: Chest pain with known coronary diseaseMI ruled out, cath without new significant obstructing lesions, pain resolved. Was likely vasospasm versus small vessel disease, either way improved with long-acting nitrates. Stable for home on Imdur. Outpatient follow-up Total Time Total Time Spent Total Time Spent (In Minutes): Less than 30 Discharge Plan Discharge Items Patient Disposition: Home - Self-Care Reason For Visit: CHEST PAIN, LEFT ARM PRESSURE, CAD Discharge Diagnosis: Chest pain (see below) Condition on Discharge: Good Activity: Resume your previous activity Non-emergency contact: Primary Care Provider and Film Crew Member Call non-emergency contact if: you have any medication questions and your symptoms worsen Follow-up/Referrals: Anahi Jose CRNP [Primary Care Provider] - Diet: Heart Healthy Addtl Attending Provider Instructions: ACTIVITY RECOMMENDATIONS: Excess manipulation of the wrist should be avoided for the next 24-48 hours. * No lifting over 2 pounds (approximately a 1/2 gallon of milk) with the utilized arm for 24 hours. * No strenuous activity such as bowling or tennis for 3 days. * Keep the site of the procedure covered with a bandage for 24 hours. *You may shower the day after the procedure. Do not take a tub bath or submerge the puncture site in water for the next 3 days. *Do not operate any motorized equipment for 3 days. SPECIAL CARE INSTRUCTIONS: The site may be slightly bruised and sore following your procedure. Should any of the following occur, contact the Dr. who performed your procedure. 1. Redness/inflammation, swelling, chills, or fever, or colored drainage at procedure site within 3-7 days after your procedure. 2. Coldness, discoloration, ongoing numbness, severe pain, or swelling. Expect mild tingling of hand and tenderness at the puncture site for up to three days. If this persists beyond three days, or other symptoms develop, notify the Dr. who performed your procedure. BLEEDING: If the procedure site on your wrist begins to bleed, do not panic 1. Place 1 or 2 fingers firmly just slightly above the insertion site to stop the bleeding. You may be able to feel your pulse as you hold pressure. 2. Lift your finger after 5 minutes to see if the bleeding has stopped. 3. Once the bleeding has stopped, gently wipe the wrist area clean with a bandage. * If the bleeding from your wrist does not stop after 10 minutes, or if there is a large amount of bleeding or spurting, call 911 (do not drive yourself to the hospital). SKIN IRRITATION: * You may experience some redness and/or swelling in the area where radiation was administered. If any skin irritation occurs, please contact your family physician. FOLLOW UP VISIT: 1. Follow up with Dr. Buchanan in 1-2 weeks. 2. Keep any scheduled doctor appointments. Pending Studies at Discharge: No Stand-Alone Forms: My [facility], Smoking Cessation Medications and DC Order Prescriptions: New isosorbide mononitrate 30 mg Tablet Extended Release 24 Hr 30 mg PO QAM Qty: 30 RF: 0 isosorbide dinitrate 30 mg tablet 30 mg PO DAILY Qty: 30 RF: 0 Continued aspirin 81 mg tablet,delayed release (DR/EC) 81 mg PO DAILY RF: 0 atorvastatin 80 mg tablet 80 mg PO QPM Qty: 90 RF: 3 lisinopril 20 mg tablet 20 mg PO DAILY Qty: 90 RF: 3 metoprolol tartrate 25 mg tablet 12.5 mg PO BID Qty: 90 RF: 3 nitroglycerin [Nitrostat] 0.4 mg tablet, sublingual 0.4 mg SL Q5M PRN (Reason: chest pain) Qty: 25 RF: 5 Discharge Orders: Discharge Order (Routine); Ordered 05/04/21 Ordered By: Silverio Herrera Admission Data Admit Date/Time: 05/03/21 11:14 Attending Provider: Silverio Herrera Admit Provider: Aleksey Veliz Primary Care Provider: Anahi Jose Other Providers: Aleksey Veliz ; Kirby Serna Other Interventions: Discharge Summary Assessment (RN) Last Done: 05/04/21 14:16 Coding Level of Care Code 87644 OBS Care - Discharge Diagnoses Intermittent chest pain R07.9
--- NOTE | 2021-05-04 23:08 | Electrocardiogram Report ---
Test Reason : Blood Pressure : / mmHG Vent. Rate : 049 BPM Atrial Rate : 049 BPM P-R Int : 106 ms QRS Dur : 124 ms QT Int : 494 ms P-R-T Axes : 028 -10 006 degrees QTc Int : 446 ms Poor data quality, interpretation may be adversely affected Sinus bradycardia Right bundle branch block When compared with ECG of 03-MAY-2021 09:40, No significant change was found Reconfirmed by Kirby Serna ([id number]) on 05/04/2021 11:51:08 PM Referred By: REFERRED SELF Confirmed By:Kirby Serna
--- NOTE | 2021-05-04 23:50 | Electrocardiogram Report ---
Test Reason : Blood Pressure : / mmHG Vent. Rate : 056 BPM Atrial Rate : 056 BPM P-R Int : 150 ms QRS Dur : 128 ms QT Int : 472 ms P-R-T Axes : 030 -13 000 degrees QTc Int : 455 ms Sinus bradycardia with sinus arrhythmia Right bundle branch block When compared with ECG of 03-MAY-2021 11:10, No significant change Confirmed by Kirby Serna ([id number]) on 05/04/2021 11:50:37 PM Referred By: REFERRED SELF Confirmed By:Kirby Serna
--- NOTE | 2021-05-05 08:11 | Electrocardiogram Report ---
Test Reason : Blood Pressure : / mmHG Vent. Rate : 059 BPM Atrial Rate : 059 BPM P-R Int : 158 ms QRS Dur : 110 ms QT Int : 466 ms P-R-T Axes : 039 -14 000 degrees QTc Int : 461 ms Sinus bradycardia Incomplete right bundle branch block Borderline ECG When compared with ECG of 03-MAY-2021 12:10, No significant change was found Confirmed by Kirby Serna ([id number]) on 05/05/2021 8:10:42 AM Referred By: REFERRED SELF Confirmed By:Kirby Serna
== END 2021-05-04 15:10 | disposition home or self-care (01) ==
LOC: ED 09:17 → EDINP 09:17 → SUATTDRO 11:14 → 2S 15:32
DX: Z79.82 Long term (current) use of aspirin; E78.5 Hyperlipidemia, unspecified; Z79.899 Other long term (current) drug therapy; Z87.891 Personal history of nicotine dependence; I25.10 Atherosclerotic heart disease of native coronary artery without angina pectoris; R07.9 Chest pain, unspecified; Z95.5 Presence of coronary angioplasty implant and graft; I11.9 Hypertensive heart disease without heart failure; Z20.822 Contact with and (suspected) exposure to COVID-19

== ENCOUNTER 2021-05-16 18:48 | Inpatient (IN) ==
--- NOTE | 2021-05-16 19:17 | Emergency Department Note ---
Impression & Plan Renal infarct, Right lateral abdominal pain, Nausea, CAD (coronary artery disease) ED Provider Note Provider: Juan David Montoya MD DATE OF SERVICE: 05/16/2021 CHIEF COMPLAINT: Right lower quadrant abdominal pain HISTORY OF PRESENT ILLNESS: Patient is a 50-year-old female history of hypertension and CAD with stents presenting here today complaining of onset yesterday of right lower quadrant pain with slight radiation to the right back sharp in nature and constant. Some associated nausea but no vomiting. Ports a little bit of chills but denies significant URI symptoms or shortness of breath. No fevers reported. Denies chest pain. Recent evaluation with cardiac catheterization several weeks ago that was reassuring. Patient denies sick contact. She denies significant diarrhea. Denies significant urinary symptoms. No radiation of the pain down the leg. Patient states she had a brief twinge of this last week but no prior history of this. Denies a history of significant abdominal surgeries. Patient states she is postmenopausal. REVIEW OF SYSTEMS: A total of 10 review of systems was obtained and negative except as stated above in the HPI. PAST MEDICAL HISTORY: As noted above MEDICATIONS: Reviewed home medication list SOCIAL HISTORY: Former smoker PHYSICAL EXAM: GENERAL: alert and oriented in no acute distress on stretcher Head: normocephalic and atraumatic EYES: No injection, discharge or icterus. NECK: Trachea midline. LUNGS: Airway patent. No retractions. Breath sounds clear HEART: Regular rate and rhythm. No chest wall tenderness ABDOMEN: Soft and non-tender, without guarding or rebound. BACK: No bilateral flank tenderness. SKIN: Acyanotic, warm, dry, without rashes EXTREMITIES: Without swelling, tenderness or deformity NEUROLOGICAL: No focal deficits. No aphasia. No slurred speech. Ambulatory. Patient's laboratory studies and imaging reviewed. Differential includes Appendicitis, ovarian cyst, ovarian torsion, ectopic , TOA, PID, infections, diverticulitis, UTI, obstruction, mesenteric ischemia, aortic pathology, inflammatory bowel disease, renal colic, PUD, pancreatitis, biliary pathology, hernia, volvulus, constipation, as well as other pathologies. IMPRESSION/MEDICAL DECISION MAKING: Patient presents with some right lower quadrant pain some radiation to the back but no sciatic symptoms. No trauma or sick contact reported. Noted some chills. Denies urinary symptoms. Dorsal bit of nausea but no vomiting. Not significantly tender on exam. Denies any cardiac symptoms or pulmonary symptoms. Covid test sent as well as basic blood work, urine sample, and a CT would be taken to the abdomen pelvis. Negative Zimmerman sign. Negative Covid and urinalysis here. Negative . No transaminitis noted. No lipase elevation noted. No signs of renal dysfunction or electrolyte abnormality. White blood cell count is elevated 15.8. CT scan per radiology shows decreased area of attenuation in the inferior pole of the right kidney approximately 4.5 cm suggestive per radiology report of acute renal infarct. Focal pyelonephritis is less likely per the radiology report. There is no evidence of acute arterial occlusion or vascular injury noted. Normal appendix was noted per the CT report. Some polypoid lesion versus blood in the endometrial cavity was noted and discussed with the patient for nonemergent pelvic follow-up. Given the patient's lack of urinary symptoms and normal urinalysis lower suspi cion for pyelonephritis. Discussed with Dr. Pruitt from the anticoagulation clinic. Multiple hypercoagulable/procoagulant studies were ordered per her direction. Patient given Tylenol for pain 7 out of 10. Updated on findings. In discussion, will proceed with heparin drip at this point and further observation here at the hospital. Urology was also consulted. DIAGNOSIS: Right lower quadrant abdominal pain, nausea, acute right renal infarct DISPOSITION: Hospitalist will evaluate Patient was agreeable with this plan. 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: No Beliefs That Will Affect Care: None marital status: Current Living Situation: Spouse How many Children do You have: 2 Feels Safe at Home: Yes Assistive Devices: None Allergies Allergies Allergy/AdvReac Type Severity Reaction Status Date / Time No Known Drug Allergies Allergy Verified 12/22/21 10:43 Home Meds Home Medications Medication Instructions Recorded Confirmed aspirin 81 mg tablet,delayed 81 mg PO QAM 03/09/19 05/16/21 release lisinopril 20 mg tablet 20 mg PO QAM 05/16/21 05/16/21 Previous Rx's Medication Instructions Recorded atorvastatin 80 mg tablet 80 mg PO QPM #90 tab 10/24/20 metoprolol tartrate 25 mg tablet 12.5 mg PO BID #90 tab 10/24/20 nitroglycerin 0.4 mg sublingual 0.4 mg SL Q5M PRN #25 tab 10/24/20 tablet (Nitrostat) Results & Data (ED) Vital Signs Vital Signs - 24 hr 05/16/21 18:57 05/16/21 19:43 Temperature 36.8 C Temperature Source Temporal Artery Scan Pulse Rate 109 H 86 Pulse Rate [Apical] 86 Respiratory Rate 18 18 Respiratory Effort / Characteristics Non-Labored Spontaneous Non-Labored Spontaneous Respiratory Depth Normal Normal Respiratory Pattern Regular Blood Pressure 165/115 H Blood Pressure [Right Arm] 143/91 H Blood Pressure Mean 131 Blood Pressure Mean [Right Arm] 108 Blood Pressure Position Sitting Pulse Oximetry 96 96 Oxygen Delivery Method Room Air Room Air Sepsis Recent Fever Within 48 Hours No Sepsis New/Unexplained Change in Mental Status No Sepsis Action Taken by Nursing No Action Required Laboratory Data Result diagrams: 05/16/21 19:30 05/16/21 19:30 Lab Results 05/16/21 05/16/21 05/16/21 Range/Units 19:30 19:30 19:30 WBC 15.84 H (4.8-10.8) K/uL RBC 4.51 (4.2-5.4) M/uL Hgb 15.5 (12.0-16.0) g/dL Hct 41.7 (37-47) % MCV 92.5 (80-100) fL MCH 34.4 H (25-34) pg MCHC 37.2 H (32-36) g/dL RDW Std Deviation 46.7 H (36.4-46.3) fL RDW Coeff of Nickie 13.9 (11.5-14.5) % Plt Count 297 (130-400) K/uL MPV 9.8 (7.4-10.4) fL Immature Gran % (Auto) 0.1 % Neut % (Auto) 81.6 % Lymph % (Auto) 12.9 % [place] % (Auto) 5.0 % Eos % (Auto) 0.3 % Baso % (Auto) 0.1 % Neut # (Auto) 12.93 H (1.4-6.5) K/uL Lymph # (Auto) 2.04 (1.2-3.4) K/uL [place] # (Auto) 0.79 H (0.11-0.59) K/uL Eos # (Auto) 0.04 (0-0.5) K/uL Baso # (Auto) 0.02 (0-0.2) K/uL Immature Gran # (Auto) 0.02 (0.00-0.02) K/uL APTT (21.0-31.0) Seconds PTT Ratio Sodium 137 (136-145) mmol/L Potassium 3.7 (3.5-5.1) mmol/L Chloride 106 (98-107) mmol/L Carbon Dioxide 25 (21-32) mmol/L Anion Gap 6.0 (3-11) BUN 8 (7-18) mg/dl Creatinine 0.87 (0.6-1.2) mg/dl Est Cr Clr Drug Dosing 88.8 ml/min Est GFR ( Amer) 91.3 ml/min Est GFR (Non-Af Amer) 78.8 ml/min BUN/Creatinine Ratio 8.9 L (10-20) Glucose 106 H (70-99) mg/dl Calcium 9.6 (8.5-10.1) mg/dl Total Bilirubin 0.4 (0.2-1) mg/dl AST 16 (15-37) U/L ALT 21 (12-78) Alkaline Phosphatase 138 H (45-117) U/L Total Protein 8.2 (6.4-8.2) gm/dl Albumin 3.6 (3.4-5.0) gm/dl Globulin 4.6 H (2.5-4.0) gm/dl Albumin/Globulin Ratio 0.8 L (0.9-2) Lipase 144 (73-393) U/L HCG, Qual Negative (Negative) Urine Color Urine Appearance (Clear) Urine pH (4.5-7.5) Ur Specific [place] (1.000-1.030) Urine Protein (Negative) Urine Glucose (UA) (Negative) Urine Ketones (Negative) Urine Blood (Negative) Urine Nitrite (Negative) Urine Bilirubin (Negative) Urine Urobilinogen (Negative) Ur Leukocyte Esterase (Negative) SARS-CoV-2, RNA, NAAT (NEGATIVE) 05/16/21 05/16/21 05/16/21 Range/Units 19:30 19:40 22:21 WBC (4.8-10.8) K/uL RBC (4.2-5.4) M/uL Hgb (12.0-16.0) g/dL Hct (37-47) % MCV (80-100) fL MCH (25-34) pg MCHC (32-36) g/dL RDW Std Deviation (36.4-46.3) fL RDW Coeff of [place] (11.5-14.5) % Plt Count (130-400) K/uL MPV (7.4-10.4) fL Immature Gran % (Auto) % Neut % (Auto) % Lymph % (Auto) % [place] % (Auto) % Eos % (Auto) % Baso % (Auto) % Neut # (Auto) (1.4-6.5) K/uL Lymph # (Auto) (1.2-3.4) K/uL [place] # (Auto) (0.11-0.59) K/uL Eos # (Auto) (0-0.5) K/uL Baso # (Auto) (0-0.2) K/uL Immature Gran # (Auto) (0.00-0.02) K/uL APTT 29.3 (21.0-31.0) Seconds PTT Ratio 1.1 Sodium (136-145) mmol/L Potassium (3.5-5.1) mmol/L Chloride (98-107) mmol/L Carbon Dioxide (21-32) mmol/L Anion Gap (3-11) BUN (7-18) mg/dl Creatinine (0.6-1.2) mg/dl Est Cr Clr Drug Dosing ml/min Est GFR ( Amer) ml/min Est GFR (Non-Af Amer) ml/min BUN/Creatinine Ratio (10-20) Glucose (70-99) mg/dl Calcium (8.5-10.1) mg/dl Total Bilirubin (0.2-1) mg/dl AST (15-37) U/L ALT (12-78) Alkaline Phosphatase (45-117) U/L Total Protein (6.4-8.2) gm/dl Albumin (3.4-5.0) gm/dl Globulin (2.5-4.0) gm/dl Albumin/Globulin Ratio (0.9-2) Lipase (73-393) U/L HCG, Qual (Negative) Urine Color Yellow Urine Appearance Clear (Clear) Urine pH 5.0 (4.5-7.5) Ur Specific [place] 1.006 (1.000-1.030) Urine Protein Negative (Negative) Urine Glucose (UA) Negative (Negative) Urine Ketones Negative (Negative) Urine Blood Negative (Negative) Urine Nitrite Negative (Negative) Urine Bilirubin Negative (Negative) Urine Urobilinogen Negative (Negative) Ur Leukocyte Esterase Negative (Negative) SARS-CoV-2, RNA, NAAT NEGATIVE (NEGATIVE) Administered Medications Heparin Sodium/Dextrose (Heparin Sodium/Dextrose) 25,000 units in 500 mls @ 25 mls/hr IV .Q20H [facility]; Protocol Stop: 06/15/21 21:59 Last Admin: 05/16/21 22:47 Dose: 1,250 units/hr, 25 mls/hr Documented by: [id number] Cosigned by: [id number] Discontinued Medications Acetaminophen (Acetaminophen 500 Mg Tab) 1,000 mg PO NOW STA Stop: 05/16/21 21:40 Last Admin: 05/16/21 22:12 Dose: 1,000 mg Documented by: [id number] Enoxaparin Sodium (Enoxaparin 1 Mg/Kg) 1 mg SQ ONCE ONE Stop: 05/16/21 21:20 Last Admin: 05/16/21 21:52 Dose: Not Given Documented by: [id number] Enoxaparin Sodium (Enoxaparin 100 Mg/1ml Syr) 100 mg SQ ONE ONE Stop: 05/16/21 21:31 Last Admin: 05/16/21 21:52 Dose: Not Given Documented by: [id number] Heparin Sodium (Porcine) (Heparin Sod (Porcine) 1000 Unit/Ml) 1 units IV NOW ONE Stop: 05/16/21 21:59 Last Admin: 05/16/21 22:46 Dose: 6,000 units Documented by: [id number] Cosigned by: [id number] Heparin Sodium/Dextrose (Heparin Iv Adult Wt-Based Standard With Bolus Protocol) 1 ea IV NOW STA; Protocol Stop: 05/16/21 21:44 Last Admin: 05/16/21 22:47 Dose: Not Given Documented by: [id number] Ceftriaxone Sodium (Rocephin) 2,000 mg in 70 mls @ 140 mls/hr IV NOW STA Stop: 05/16/21 21:46 Last Infusion: 05/16/21 22:48 Dose: 0 mls/hr Documented by: [id number] Admin: 05/16/21 22:11 Dose: 140 mls/hr Documented by: [id number] Ioversol (Optiray 320 100ml) 95 ml IV ONCE ONE Stop: 05/16/21 20:33 Last Admin: 05/16/21 20:34 Dose: 95 ml Documented by: [id number] Imaging Data Radiologist's Impression: Abdomen/Pelvis CT 05/16/21 19:[address] WITH IV CONTRAST CT DOSE: 1101.62 mGy.cm HISTORY: Acute right lower quadrant abdominal pain with nausea RLq pain, nausea TECHNIQUE: Multiaxial CT images of the abdomen and pelvis were performed following the IV administration of 95 cc of Optiray, A dose lowering technique was utilized adhering to the principles of ALARA. COMPARISON STUDY: Chest radiograph 05/03/2021 FINDINGS: Coronary artery calcifications. The imaged inferior cardiac chambers are unremarkable. Clear lung bases. There is no pneumatosis or pneumoperitoneum. Unremarkable spleen, pancreas, gallbladder and adrenal glands. 6 mm hypodensity of the right hepatic lobe on image 81 series 3 is suggestive of a probable cyst, however is too small to adequately characterize. Patent portal vein. Unremarkable left kidney. There is a wedge-shaped area of decreased enhancement involving the inferior right kidney extending to the capsule overall measuring up to approximately 4.5 cm. There is adjacent perinephric stranding. No h ydronephrosis or obvious arterial occlusion or injury identified. Unremarkable urinary bladder. There is mild thickening of the fundal endometrium measuring up to approximately 1.2 cm transversely with a focal area of polypoid increased attenuation within the endometrial cavity measuring 1.4 cm. No adnexal mass lesion. Atherosclerosis of the aorta without aneurysm. No adenopathy. There are a few nonenlarged lymph nodes adjacent to the proximal stomach. No bowel obstruction or bowel wall thickening. Colonic diverticulosis. Normal appendix. Unremarkable soft tissues. No acute fracture. Moderate intervertebral disc space narrowing with posterior disc osteophyte complex at L5-S1. IMPRESSION: 1. Focal area of decreased attenuation within the inferior pole right kidney measuring up to approximately 4.5 cm is suggestive of an acute renal infarct. Focal pyelonephritis considered less likely. No obvious arterial occlusion or vascular injury identified. 2. No bowel obstruction or bowel wall thickening. Normal appendix. 3. Colonic diverticulosis. 4. Polypoid lesion versus blood products within the fundal endometrial cavity. This could be correlated with a nonemergent follow-up pelvic ultrasound. 5. Coronary artery calcifications. ACT 112: Negative or not required by law. The above report was generated using voice recognition software. It may contain grammatical, syntax or spelling errors. Electronically signed by: Roni Palmer M.D. 05/16/2021 8:51 PM Discharge Plan Visit Data Chief Complaint: Abdominal Pain Stated Complaint: RT LOWER ABDOMINAL PAIN, CHILLS ED Provider: Juan David Montoya Discharge Problem: Renal infarct, Right lateral abdominal pain, Nausea, CAD (coronary artery dise ase) Patient Disposition: Being Evaluated by Hospitalist Forms Stand Alone Forms: [employer] Prescriptions Prescriptions: No Action aspirin 81 mg tablet,delayed release (DR/EC) 81 mg PO QAM RF: 0 atorvastatin 80 mg tablet 80 mg PO QPM Qty: 90 RF: 3 metoprolol tartrate 25 mg tablet 12.5 mg PO BID Qty: 90 RF: 3 nitroglycerin [Nitrostat] 0.4 mg tablet, sublingual 0.4 mg SL Q5M PRN (Reason: chest pain) Qty: 25 RF: 5 lisinopril 20 mg tablet 20 mg PO QAM RF: 0 Referrals Referrals: Anahi Jose CRNP [Primary Care Provider] -
[2021-05-16 19:42] LABS: Appearance Urine Clear (Clear); Bilirubin Urine Negative (Negative); Blood Urine Negative (Negative); Color Urine Yellow; Glucose Urine UA Negative (Negative); Ketones Urine Negative (Negative); Leukocyte Esterase Urine Negative (Negative); Nitrite Urine Negative (Negative); Protein Urine Negative (Negative); Specific Gravity Urine 1.006 (1.000-1.030); Urobilinogen Urine Negative (Negative)
[2021-05-16 19:43] LABS: Basophils # (auto) 0.02 K/uL (0-0.2); Basophils % (auto) 0.1 %; Eosinophils # (auto) 0.04 K/uL (0-0.5); Eosinophils % (auto) 0.3 %; Hematocrit (blood only) 41.7 % (37-47); Hemoglobin 15.5 g/dL (12.0-16.0); Immature Granulocytes # (auto) 0.02 K/uL (0.00-0.02); Immature Granulocytes % (auto) 0.1 %; Lymphocytes # (auto) 2.04 K/uL (1.2-3.4); Lymphocytes % (auto) 12.9 %; Mean Corpuscular Hemoglobin 34.4 pg (25-34); Mean Corpuscular Hgb Conc 37.2 g/dL (32-36); Mean Corpuscular Volume 92.5 fL (80-100); Mean Platelet Volume 9.8 fL (7.4-10.4); Monocytes # (auto) 0.79 K/uL (0.11-0.59); Neutrophils # (auto) 12.93 K/uL (1.4-6.5); Neutrophils % (auto) 81.6 %; Platelet Count 297 K/uL (130-400); RDW Coefficient of Variation 13.9 % (11.5-14.5); RDW Standard Deviation 46.7 fL (36.4-46.3); Red Blood Count 4.51 M/uL (4.2-5.4); White Blood Count 15.84 K/uL (4.8-10.8)
[2021-05-16 20:02] LABS: Albumin Level 3.6 gm/dl (3.4-5.0); BUN Creatinine Ratio 8.9 (10-20); Calcium 9.6 mg/dl (8.5-10.1); Creatinine Clr Calc Pharmacy 88.8 ml/min; Est GFR (African American) 91.3 ml/min; Est GFR (Non-African American) 78.8 ml/min; Potassium 3.7 mmol/L (3.5-5.1)
[2021-05-16 20:05] LABS: Albumin Globulin Ratio 0.8 (0.9-2); Bilirubin,Total 0.4 mg/dl (0.2-1); Globulin 4.6 gm/dl (2.5-4.0); Total Protein 8.2 gm/dl (6.4-8.2)
[2021-05-16 20:12] LABS: Pregnancy Test, Serum Negative (Negative)
[2021-05-16] MEDS ORDERED: OPTIRAY 320 100ml IV ONE (20:32)
--- NOTE | 2021-05-16 20:53 | CT Scan Report ---
ABDOMEN AND PELVIS CT WITH IV CONTRAST CT DOSE: 1101.62 mGy.cm HISTORY: Acute right lower quadrant abdominal pain with nausea RLq pain, nausea TECHNIQUE: Multiaxial CT images of the abdomen and pelvis were performed following the IV administrat ion of 95 cc of Optiray, A dose lowering technique was utilized adhering to the principles of ALARA. COMPARISON STUDY: Chest radiograph 05/03/2021 FINDINGS: Coronary artery calcifications. The imaged inferior cardiac chambers are unremarkable. Sayda r lung bases. There is no pneumatosis or pneumoperitoneum. Unremarkable spleen, pancreas, gallbladder and adrenal glands. 6 mm hypodensity of the right hepatic lobe on image 81 series 3 is suggestive of a probable cyst, however is too small to adequately characterize. Patent portal vein. Unremarkable left kidney. There is a wedge-shaped area of decreased enhancement involving the inferio r right kidney extending to the capsule overall measuring up to approximately 4.5 cm. There is adjace nt perinephric stranding. No hydronephrosis or obvious arterial occlusion or injury identified. Unrem arkable urinary bladder. There is mild thickening of the fundal endometrium measuring up to approxima tely 1.2 cm transversely with a focal area of polypoid increased attenuation within the endometrial c avity measuring 1.4 cm. No adnexal mass lesion. Atherosclerosis of the aorta without aneurysm. No lori nopathy. There are a few nonenlarged lymph nodes adjacent to the proximal stomach. No bowel obstruction or bowel wall thickening. Colonic diverticulosis. Normal appendix. Unremarkable soft tissues. No acute fracture. Moderate intervertebral disc space narrowing with posterior disc ost eophyte complex at L5-S1. IMPRESSION: 1. Focal area of decreased attenuation within the inferior pole right kidney measuring up to approxim ately 4.5 cm is suggestive of an acute renal infarct. Focal pyelonephritis considered less likely. No obvious arterial occlusion or vascular injury identified. 2. No bowel obstruction or bowel wall thickening. Normal appendix. 3. Colonic diverticulosis. 4. Polypoid lesion versus blood products within the fundal endometrial cavity. This could be correlat ed with a nonemergent follow-up pelvic ultrasound. 5. Coronary artery calcifications. ACT 112: Negative or not required by law. The above report was generated using voice recognition software. It may contain grammatical, syntax o r spelling errors. Electronically signed by: Roni Palmer M.D. 05/16/2021 8:51 PM
[2021-05-16] MEDS ORDERED: cefTRIAXone SODIUM 2,000 MG/70 ML BAG IV STA (21:17)
[2021-05-16] MEDS ORDERED: ENOXAPARIN 1 MG/KG SQ ONE (21:19)
[2021-05-16] MEDS ORDERED: ENOXAPARIN 100 MG/1ML SYR SQ ONE (21:30)
[2021-05-16] MEDS ORDERED: ACETAMINOPHEN 500 MG TAB PO STA (21:39)
[2021-05-16] MEDS ORDERED: Heparin IV Adult Wt-Based Standard WITH Bolus Protocol IV STA (21:43)
[2021-05-16] MEDS ORDERED: HEPARIN SOD (PORCINE) 1000 UNIT/ML IV ONE (21:58)
--- NOTE | 2021-05-16 22:20 | Urology Consultation ---
Date of Consultation May 16, 2021 Assessment & Plan (1) Renal infarct: I discussed with the treating emergency room physician and he notes he is having the patient admitted on the hospitalist service proceeding as follows: They discussed the case with hematopathology and they feel anticoagulation is warranted due to the acute renal infarct. In addition they note that they are initiating a hypercoagulable work-up In addition antibiotics are being initiated in the form of Rocephin due to patient's elevated white blood cell count From a urology perspective no other intervention is required at the present time and care is largely supportive with analgesics and antiemetics History of Present Illness Reason for Consultation: Renal infarct History of Present Illness This 50-year-old female who presented to [facility] emergency department secondary abdominal pain. Patient notes that the pain began approximately 1 week ago and was located primarily in the right hypogastric area and to a lesser degree the right flank. Patient notes that the pain does not radiate. She also denies any palliative or provocative factors. She had associ ated nausea without vomiting. She said that she did feel as though she was running a low-grade fever but did not take her temperature. Patient says that she has never had pain like this before. She said when the pain initially started it would come and go but has become somewhat more persistent and intolerable therefore she presented to the emergency department. Patient notes that she does have a history of coronary artery disease with cardiac stents. Patient notes that she did have cardiac catheterization in 2011 where she had percutaneous intervention performed. She had a repeat catheterization in 2012 where she again had PCI performed. The patient's most recent cardiac catheterization was on 05/03/2021 at [facility]. During this procedure no percutaneous intervention was required. Patient denies any known history of DVT, PE, atrial fibrillation, or other hypercoagulable state. She also does not note any hypercoagulable state that runs in her family. In the emergency department patient had labs and imaging which I independently reviewed. She did have a CT scan of her abdomen pelvis that showed a focal area of decreased attenuation at the inferior pole of the right kidney. This area measured approximately 4.5 cm in size and was concerning for an acute renal infarct. There is no obvious arterial occlusion or vascular injury noted on this study. Labs include a CBC her white blood cell count is 15.8. Hemoglobin and hematocrit are both normal as were the platelet count. Chemistry profile showed sodium, potassium, BUN, and creatinine were all within normal range. There is no significant elevation of transaminases or bilirubin. Alkaline phosphatase had a slight elevation at 138. Lipase was noted to be not elevated and a test was negative. Urinalysis was performed and was not indicative of infection. A Covid test was performed and was noted to be negative. At the time of my interview the patient was resting comfortably in bed. Her pain is well controlled and she was in no distress. Allergies Allergy/AdvReac Type Severity Reaction Status Date / Time No Known Drug Allergies Allergy Verified 05/03/21 10:43 Home Medications Medication Instructions Recorded Confirmed Type aspirin 81 mg tablet,delayed 81 mg PO QAM 03/09/19 05/16/21 History release atorvastatin 80 mg tablet 80 mg PO QPM #90 tab 10/24/20 05/16/21 Rx metoprolol tartrate 25 mg tablet 12.5 mg PO BID #90 tab 10/24/20 05/16/21 Rx nitroglycerin 0.4 mg sublingual 0.4 mg SL Q5M PRN #25 tab 10/24/20 05/16/21 Rx tablet (Nitrostat) lisinopril 20 mg tablet 20 mg PO QAM 05/16/21 05/16/21 History Patient History Medical History CAD (coronary artery disease) Dyslipidemia Hypertension Surgical History Stented coronary artery Family History Denies family history of Ovarian cancer Breast cancer Colorectal cancer Social History Smoking Status: Former smoker Tobacco Type: Cigarettes Hx Alcohol Use: No Hx Substance Use: No Preferred Language: Samoan Communication Ability: Effective Crime Lab Technician Required: No Beliefs That Will Affect Care: None marital status: Current Living Situation: Spouse How many Children do You have: 2 Feels Safe at Home: Yes Assistive Devices: None Review of Systems Constitutional: + fever; no chills Eyes: no blind spots Ear, Nose, Mouth, Throat: no ear pain Respiratory: no cough and no dyspnea Cardiovascular: no chest pain Gastrointestinal: + abdominal pain and + nausea; no vomiting Genitourinary: + flank pain (Right sided); no dysuria, no urinary frequency and no hematuria Musculoskeletal: + back pain (Right-sided flank pain) Integumentary: no rash Neurologic: no localized weakness Physical Exam Constitutional: well developed and well nourished; no acute distress Eyes: no conjunctival abnormality ENMT: Ears: no hearing impairment and no external ear abnormality Neck: trachea midline Respiratory: normal respiratory effort; no respiratory distress and no labored breathing Cardiovascular: Rate/Rhythm: regular rate and regular rhythm Gastrointestinal (Abdomen): Soft, nontender, nondistended. There is no pain with palpation Musculoskeletal: No calf tenderness Skin: no rashes Neurologic: moves all extremities Psychiatric: A+Ox3, euthymic affect Results & Data ([facility]) Vital Signs (Past 12 Hours) Vital Signs Temp Pulse Pulse Resp BP BP Pulse Ox 05/16/21 19:43 86 86 18 143/91 H 96 05/16/21 18:57 36.8 C 109 H 18 165/115 H 96 PG Care Time/CCT Total # of Minutes Spent Total Time Spent with Patient: Total time spent is greater than 50% in coordination of care (as documented) at patient's floor/unit and/or counseling patient: Coding Level of Care Code 71210 Inpt Consult Level 5 Diagnoses Renal infarct N28.0
[2021-05-16] MEDS: HEPARIN SODIUM/DEXTROSE 25,000 UNITS/500 ML BAG IV SCH (22:47)
[2021-05-16 22:51] LABS: Partial Thromboplastin Ratio 1.1; Partial Thromboplastin Time 29.3 Seconds (21.0-31.0)
--- NOTE | 2021-05-16 23:21 | History & Physical Report ---
Date of Service May 16, 2021 Assessment & Plan (1) Renal infarct: Plan: 50yo Female here with Abdominal Pain. PMH CAD with 4 stents, HTN, HLD, RBBB. ()Renal Infarct -Pt with abd pain 05/11 and again 1/3 worsening no hematuria -CT abd w/contrast Focal area of decreased attenuation within the inferior pole right kidney measuring up to approximately 4.5 cm is suggestive of an acute renal infarct. Focal pyelonephritis considered less likely. No obvious arterial occlusion or vascular injury identified. No bowel obstruction or bowel wall thickening. Normal appendix. Colonic diverticulosis. Polypoid lesion versus blood products within the fundal endometrial cavity. This could be correlated with a nonemergent follow-up pelvic ultrasound. Coronary artery calcifications. -consider etiology embolic v. thrombotic, could procede with mesenteric doppler v. [address] -WBC elevated 15.84 -BUN Creat wnl -Urology consulted, ordered hypercoagulability workup, continue ceftriaxone, continue heparin drip -trend cbc, bmp ()Endometrial Lesion -found incidentally on CT -menopause 6 years, no vaginal bleed -ordered transvaginal/pelvic US () CAD with 4 stents -continue ASA, atorvastatin, lisinopril, metoprolol -last echo 05/03 EF 60-65% no clot in atria noted -last cath 05/03 no significant occlusion ()HTN -continue lisinopril, metoprolol ()HLD -continue atorvastatin FENa: npo Code Status: full DVT PPX: heparin, SCDs Dispo: med/tele Krysta Madrid Do PGY 1, FCM (2) Hypertension: (3) CAD (coronary artery disease): (4) Stented coronary artery: (5) Dyslipidemia: (6) Right lateral abdominal pain: (7) Lesion of endometrium: History of Present Illness Chief Complaint: Abdominal Pain Primary Care Provider: GAVIN Borrego 50yo Female here with Abdominal Pain. PMH CAD with 4 stents, HTN, HLD, RBBB. Patient seen at bedside calm comfortable cooperative. Patient states last week she had abd pain on 05/11, thought it was food poisoning, it disappeared after a few hours. Her abd pain occurred again yesterday, slowly got worse/more painful, started in her front RLQ later radiated to her back. She complained of nausea without vomiting, chills with slight fever, denies blood in urine, denies weakness or rashes. She states this has never happened before, denies history of coagulability disorders. States her LMP was 6 years ago, is in menopause, not on control, denies vaginal bleeding. She states she takes her medication regularly, denies smoking, rare yearly alcohol, 2 cups coffee daily, denies illicit drug use. Only allergies are seasonal. Patient states family history of heart disease on mother and father's side, denies FH of stroke or coagulability disorders. Patient recently hospitalized 05/03 dc'd 05/04 for chest pain possible vasospasms v. small vessel disease improved with nitro, cath without new significant obstructing lesions. Allergies Allergy/AdvReac Type Severity Reaction Status Date / Time No Known Drug Allergies Allergy Verified 05/03/21 10:43 Home Medications Medication Instructions Recorded Confirmed Type aspirin 81 mg tablet,delayed 81 mg PO QAM 03/09/19 05/16/21 History release atorvastatin 80 mg tablet 80 mg PO QPM #90 tab 10/24/20 05/16/21 Rx metoprolol tartrate 25 mg tablet 12.5 mg PO BID #90 tab 10/24/20 05/16/21 Rx nitroglycerin 0.4 mg sublingual 0.4 mg SL Q5M PRN #25 tab 10/24/20 05/16/21 Rx tablet (Nitrostat) lisinopril 20 mg tablet 20 mg PO QAM 05/16/21 05/16/21 History apixaban 5 mg tablet (Eliquis) 5 mg PO BID #70 tab 05/17/21 Rx Past Med/Surg History Medical History CAD (coronary artery disease) Dyslipidemia Hypertension Surgical History Stented coronary artery Family History Denies family history of Ovarian cancer Breast cancer Colorectal cancer Social History Smoking Status: Never smoker Tobacco Type: Cigarettes Second Hand Exposure: No; Do You Dip or Chew Tobacco: No; Tobacco Cessation Education Requested by Patient: No Hx Alcohol Use: No Hx Substance Use: No Preferred Language: Maori Communication Ability: Effective Vascular Nurse Required: No Beliefs That Will Affect Care: None marital status: Current Living Situation: Spouse How many Children do You have: 2 Other Information That Helps Us Care for You: No Feels Safe at Home: Yes Assistive Devices: None Review of Systems Review of Systems: Abd pain, chills, nausea Negative fever Negative headache dizziness Negative chest pain palpitations SOB cough Negative vomitting diarrhea constipation dysuria hematuria Negative numbness tingling rash swelling weakness Physical Exam Constitutional: WD/WN, vitals as above + morbidly obese, cooperative and comfortable Eyes: PERRL, conjunctivae normal, anicteric sclerae Neck: trachea midline, no thyromegaly Respiratory: normal respiratory effort, lungs clear to auscultation Cardiovascular: RRR, no murmur, no edema Heart Sounds: normal S1 and normal S2 Gastrointestinal (Abdomen): Inspection/Auscultation: abdomen normal to inspection and normal bowel sounds; abdomen not distended Percussion/Palpation: + abdomen tender (RLQ) and abdomen soft no pain on palpation on right lower back Musculoskeletal: no cyanosis or clubbing, extremities motor strength 5/5 Skin: no rashes, warm and dry Psychiatric: A+Ox3, euthymic affect Results & Data Results & Data ([facility]) Vital Signs (Past 12 Hours) Vital Signs Temp Pulse Pulse Resp BP BP Pulse Ox 05/16/21 23:05 96 H 18 114/70 96 05/16/21 19:43 86 86 18 143/91 H 96 05/16/21 18:57 36.8 C 109 H 18 165/115 H 96 Laboratory Results 05/16/21 05/16/21 05/16/21 Range/Units 22:21 22:21 22:21 WBC (4.8-10.8) K/uL RBC (4.2-5.4) M/uL Hgb (12.0-16.0) g/dL Hct (37-47) % MCV (80-100) fL MCH (25-34) pg MCHC (32-36) g/dL RDW Std Deviation (36.4-46.3) fL RDW Coeff of Nickie (11.5-14.5) % Plt Count (130-400) K/uL MPV (7.4-10.4) fL Immature Gran % (Auto) % Neut % (Auto) % Lymph % (Auto) % [place] % (Auto) % Eos % (Auto) % Baso % (Auto) % Neut # (Auto) (1.4-6.5) K/uL Lymph # (Auto) (1.2-3.4) K/uL [place] # (Auto) (0.11-0.59) K/uL Eos # (Auto) (0-0.5) K/uL Baso # (Auto) (0-0.2) K/uL Immature Gran # (Auto) (0.00-0.02) K/uL APTT 29.3 (21.0-31.0) Seconds PTT Ratio 1.1 Lupus Anticoagulant Lupus Anticoag aPTT Dil Jensen Viper Venom dRVVT Mix Interpret Protein C Activity Protein S Activity Antithrombin III Activ Factor V Leiden Mutat Pending Factor V Leiden Interp Pending Sodium (136-145) mmol/L Potassium (3.5-5.1) mmol/L Chloride (98-107) mmol/L Carbon Dioxide (21-32) mmol/L Anion Gap (3-11) BUN (7-18) mg/dl Creatinine (0.6-1.2) mg/dl Est Cr Clr Drug Dosing ml/min Est GFR ( Amer) ml/min Est GFR (Non-Af Amer) ml/min BUN/Creatinine Ratio (10-20) Glucose (70-99) mg/dl Calcium (8.5-10.1) mg/dl Total Bilirubin (0.2-1) mg/dl AST (15-37) U/L ALT (12-78) Alkaline Phosphatase (45-117) U/L Total Protein (6.4-8.2) gm/dl Albumin (3.4-5.0) gm/dl Globulin (2.5-4.0) gm/dl Albumin/Globulin Ratio (0.9-2) Lipase (73-393) U/L Homocysteine Pending HCG, Qual (Negative) Urine Color Urine Appearance (Clear) Urine pH (4.5-7.5) Ur Specific [place] (1.000-1.030) Urine Protein (Negative) Urine Glucose (UA) (Negative) Urine Ketones (Negative) Urine Blood (Negative) Urine Nitrite (Negative) Urine Bilirubin (Negative) Urine Urobilinogen (Negative) Ur Leukocyte Esterase (Negative) Beta-2-GPI IgG Ab Beta-2-GPI IgM Ab Anti-Cardiolipin IgG Ab Anti-Cardiolipin IgM Ab SARS-CoV-2, RNA, NAAT (NEGATIVE) Prothrombin Gene Mutate Pending Prothromb Gene Comment Pending 05/16/21 05/16/21 05/16/21 Range/Units 22:21 22:21 19:40 WBC (4.8-10.8) K/uL RBC (4.2-5.4) M/uL Hgb (12.0-16.0) g/dL Hct (37-47) % MCV (80-100) fL MCH (25-34) pg MCHC (32-36) g/dL RDW Std Deviation (36.4-46.3) fL RDW Coeff of Nickie (11.5-14.5) % Plt Count (130-400) K/uL MPV (7.4-10.4) fL Immature Gran % (Auto) % Neut % (Auto) % Lymph % (Auto) % [place] % (Auto) % Eos % (Auto) % Baso % (Auto) % Neut # (Auto) (1.4-6.5) K/uL Lymph # (Auto) (1.2-3.4) K/uL [place] # (Auto) (0.11-0.59) K/uL Eos # (Auto) (0-0.5) K/uL Baso # (Auto) (0-0.2) K/uL Immature Gran # (Auto) (0.00-0.02) K/uL APTT (21.0-31.0) Seconds PTT Ratio Lupus Anticoagulant Pending Lupus Anticoag aPTT Pending Dil Jensen Viper Venom Pending dRVVT Mix Interpret Pending Protein C Activity Pending Protein S Activity Cancelled Pending Antithrombin III Activ Pending Factor V Leiden Mutat Factor V Leiden Interp Sodium (136-145) mmol/L Potassium (3.5-5.1) mmol/L Chloride (98-107) mmol/L Carbon Dioxide (21-32) mmol/L Anion Gap (3-11) BUN (7-18) mg/dl Creatinine (0.6-1.2) mg/dl Est Cr Clr Drug Dosing ml/min Est GFR ( Amer) ml/min Est GFR (Non-Af Amer) ml/min BUN/Creatinine Ratio (10-20) Glucose (70-99) mg/dl Calcium (8.5-10.1) mg/dl Total Bilirubin (0.2-1) mg/dl AST (15-37) U/L ALT (12-78) Alkaline Phosphatase (45-117) U/L Total Protein (6.4-8.2) gm/dl Albumin (3.4-5.0) gm/dl Globulin (2.5-4.0) gm/dl Albumin/Globulin Ratio (0.9-2) Lipase (73-393) U/L Homocysteine HCG, Qual (Negative) Urine Color Urine Appearance (Clear) Urine pH (4.5-7.5) Ur Specific [place] (1.000-1.030) Urine Protein (Negative) Urine Glucose (UA) (Negative) Urine Ketones (Negative) Urine Blood (Negative) Urine Nitrite (Negative) Urine Bilirubin (Negative) Urine Urobilinogen (Negative) Ur Leukocyte Esterase (Negative) Beta-2-GPI IgG Ab Pending Cancelled Beta-2-GPI IgM Ab Pending Cancelled Anti-Cardiolipin IgG Ab Pending Cancelled Anti-Cardiolipin IgM Ab Pending Cancelled SARS-CoV-2, RNA, NAAT NEGATIVE (NEGATIVE) Prothrombin Gene Mutate Prothromb Gene Comment 05/16/21 05/16/21 05/16/21 Range/Units 19:30 19:30 19:30 WBC (4.8-10.8) K/uL RBC (4.2-5.4) M/uL Hgb (12.0-16.0) g/dL Hct (37-47) % MCV (80-100) fL MCH (25-34) pg MCHC (32-36) g/dL RDW Std Deviation (36.4-46.3) fL RDW Coeff of Nickie (11.5-14.5) % Plt Count (130-400) K/uL MPV (7.4-10.4) fL Immature Gran % (Auto) % Neut % (Auto) % Lymph % (Auto) % [place] % (Auto) % Eos % (Auto) % Baso % (Auto) % Neut # (Auto) (1.4-6.5) K/uL Lymph # (Auto) (1.2-3.4) K/uL [place] # (Auto) (0.11-0.59) K/uL Eos # (Auto) (0-0.5) K/uL Baso # (Auto) (0-0.2) K/uL Immature Gran # (Auto) (0.00-0.02) K/uL APTT (21.0-31.0) Seconds PTT Ratio Lupus Anticoagulant Lupus Anticoag aPTT Dil Jensen Viper Venom dRVVT Mix Interpret Protein C Activity Protein S Activity Antithrombin III Activ Factor V Leiden Mutat Factor V Leiden Interp Sodium 137 (136-145) mmol/L Potassium 3.7 (3.5-5.1) mmol/L Chloride 106 (98-107) mmol/L Carbon Dioxide 25 (21-32) mmol/L Anion Gap 6.0 (3-11) BUN 8 (7-18) mg/dl Creatinine 0.87 (0.6-1.2) mg/dl Est Cr Clr Drug Dosing 88.8 ml/min Est GFR ( Amer) 91.3 ml/min Est GFR (Non-Af Amer) 78.8 ml/min BUN/Creatinine Ratio 8.9 L (10-20) Glucose 106 H (70-99) mg/dl Calcium 9.6 (8.5-10.1) mg/dl Total Bilirubin 0.4 (0.2-1) mg/dl AST 16 (15-37) U/L ALT 21 (12-78) Alkaline Phosphatase 138 H (45-117) U/L Total Protein 8.2 (6.4-8.2) gm/dl Albumin 3.6 (3.4-5.0) gm/dl Globulin 4.6 H (2.5-4.0) gm/dl Albumin/Globulin Ratio 0.8 L (0.9-2) Lipase 144 (73-393) U/L Homocysteine HCG, Qual Negative (Negative) Urine Color Yellow Urine Appearance Clear (Clear) Urine pH 5.0 (4.5-7.5) Ur Specific [place] 1.006 (1.000-1.030) Urine Protein Negative (Negative) Urine Glucose (UA) Negative (Negative) Urine Ketones Negative (Negative) Urine Blood Negative (Negative) Urine Nitrite Negative (Negative) Urine Bilirubin Negative (Negative) Urine Urobilinogen Negative (Negative) Ur Leukocyte Esterase Negative (Negative) Beta-2-GPI IgG Ab Beta-2-GPI IgM Ab Anti-Cardiolipin IgG Ab Anti-Cardiolipin IgM Ab SARS-CoV-2, RNA, NAAT (NEGATIVE) Prothrombin Gene Mutate Prothromb Gene Comment 05/16/21 Range/Units 19:30 WBC 15.84 H (4.8-10.8) K/uL RBC 4.51 (4.2-5.4) M/uL Hgb 15.5 (12.0-16.0) g/dL Hct 41.7 (37-47) % MCV 92.5 (80-100) fL MCH 34.4 H (25-34) pg MCHC 37.2 H (32-36) g/dL RDW Std Deviation 46.7 H (36.4-46.3) fL RDW Coeff of Nickie 13.9 (11.5-14.5) % Plt Count 297 (130-400) K/uL MPV 9.8 (7.4-10.4) fL Immature Gran % (Auto) 0.1 % Neut % (Auto) 81.6 % Lymph % (Auto) 12.9 % [place] % (Auto) 5.0 % Eos % (Auto) 0.3 % Baso % (Auto) 0.1 % Neut # (Auto) 12.93 H (1.4-6.5) K/uL Lymph # (Auto) 2.04 (1.2-3.4) K/uL [place] # (Auto) 0.79 H (0.11-0.59) K/uL Eos # (Auto) 0.04 (0-0.5) K/uL Baso # (Auto) 0.02 (0-0.2) K/uL Immature Gran # (Auto) 0.02 (0.00-0.02) K/uL APTT (21.0-31.0) Seconds PTT Ratio Lupus Anticoagulant Lupus Anticoag aPTT Dil Jensen Viper Venom dRVVT Mix Interpret Protein C Activity Protein S Activity Antithrombin III Activ Factor V Leiden Mutat Factor V Leiden Interp Sodium (136-145) mmol/L Potassium (3.5-5.1) mmol/L Chloride (98-107) mmol/L Carbon Dioxide (21-32) mmol/L Anion Gap (3-11) BUN (7-18) mg/dl Creatinine (0.6-1.2) mg/dl Est Cr Clr Drug Dosing ml/min Est GFR ( Amer) ml/min Est GFR (Non-Af Amer) ml/min BUN/Creatinine Ratio (10-20) Glucose (70-99) mg/dl Calcium (8.5-10.1) mg/dl Total Bilirubin (0.2-1) mg/dl AST (15-37) U/L ALT (12-78) Alkaline Phosphatase (45-117) U/L Total Protein (6.4-8.2) gm/dl Albumin (3.4-5.0) gm/dl Globulin (2.5-4.0) gm/dl Albumin/Globulin Ratio (0.9-2) Lipase (73-393) U/L Homocysteine HCG, Qual (Negative) Urine Color Urine Appearance (Clear) Urine pH (4.5-7.5) Ur Specific [place] (1.000-1.030) Urine Protein (Negative) Urine Glucose (UA) (Negative) Urine Ketones (Negative) Urine Blood (Negative) Urine Nitrite (Negative) Urine Bilirubin (Negative) Urine Urobilinogen (Negative) Ur Leukocyte Esterase (Negative) Beta-2-GPI IgG Ab Beta-2-GPI IgM Ab Anti-Cardiolipin IgG Ab Anti-Cardiolipin IgM Ab SARS-CoV-2, RNA, NAAT (NEGATIVE) Prothrombin Gene Mutate Prothromb Gene Comment Diagnostic Findings Abdomen/Pelvis CT 05/16/21 19:[address] WITH IV CONTRAST CT DOSE: 1101.62 mGy.cm HISTORY: Acute right lower quadrant abdominal pain with nausea RLq pain, nausea TECHNIQUE: Multiaxial CT images of the abdomen and pelvis were performed following the IV administration of 95 cc of Optiray, A dose lowering technique was utilized adhering to the principles of ALARA. COMPARISON STUDY: Chest radiograph 05/03/2021 FINDINGS: Coronary artery calcifications. The imaged inferior cardiac chambers are unremarkable. Clear lung bases. There is no pneumatosis or pneumoperitoneum. Unremarkable spleen, pancreas, gallbladder and adrenal glands. 6 mm hypodensity of the right hepatic lobe on image 81 series 3 is suggestive of a probable cyst, however is too small to adequately characterize. Patent portal vein. Unremarkable left kidney. There is a wedge-shaped area of decreased enhancement involving the inferior right kidney extending to the capsule overall measuring up to approximately 4.5 cm. There is adjacent perinephric stranding. No hydronephrosis or obvious arterial occlusion or injury identified. Unremarkable urinary bladder. There is mild thickening of the fundal endometrium measuring up to approximately 1.2 cm transversely with a focal area of polypoid increased attenuation within the endometrial cavity measuring 1.4 cm. No adnexal mass lesion. Atherosclerosis of the aorta without aneurysm. No adenopathy. There are a few nonenlarged lymph nodes adjacent to the proximal stomach. No bowel obstruction or bowel wall thickening. Colonic diverticulosis. Normal appendix. Unremarkable soft tissues. No acute fracture. Moderate intervertebral disc space narrowing with posterior disc osteophyte complex at L5-S1. IMPRESSION: 1. Focal area of decreased attenuation within the inferior pole right kidney measuring up to approximately 4.5 cm is suggestive of an acute renal infarct. Focal pyelonephritis considered less likely. No obvious arterial occlusion or vascular injury identified. 2. No bowel obstruction or bowel wall thickening. Normal appendix. 3. Colonic diverticulosis. 4. Polypoid lesion versus blood products within the fundal endometrial cavity. This could be correlated with a nonemergent follow-up pelvic ultrasound. 5. Coronary artery calcifications. ACT 112: Negative or not required by law. The above report was generated using voice recognition software. It may contain grammatical, syntax or spelling errors. Electronically signed by: Roni Palmer M.D. 05/16/2021 8:51 PM Medications Administered Current Inpatient Medications Heparin Sodium/Dextrose (Heparin Sodium/Dextrose) 25,000 units in 500 mls @ 25 mls/hr IV .Q20H [facility]; Protocol Stop: 06/15/21 21:59 Last Admin: 05/16/21 22:47 Dose: 1,250 units/hr, 25 mls/hr Documented by: Supervising Physician Co-Signing Physician Notes Attending addendum: I have physically seen this patient, have supervised the medical residents activities, and agree with the H&P unless as otherwise noted. Assessment and Plan: Acute right renal infarct 4.5 cm- Follow urine culture sensitivity Ceftriaxone 2 g IV daily Heparin drip per protocol Hypercoagulable work-up Follow serial CBC with differential and BMP Consult urology Endometrial lesion- Postmenopausal 6 years Order transvaginal/pelvic ultrasound Remaining orders and notations as noted Resident Activity Tracking Resident Involvement: Resident Care Provided Care Provided: Adult Hospital Medicine
[2021-05-17] MEDS ORDERED: NITROGLYCERIN SL 0.4 MG/TAB TAB SL PRN ×2 (02:38)
[2021-05-17] MEDS ORDERED: ONDANSETRON INJ 2 MG/ML 2 ML VIAL IV PRN (02:38)
[2021-05-17] MEDS ORDERED: ACETAMINOPHEN 325 MG TAB PO PRN (02:38)
[2021-05-17] MEDS ORDERED: POLYETHYLENE (MIRALAX) 17 GM PACK PO PRN (02:38)
[2021-05-17 05:02] LABS: Basophils # (auto) 0.02 K/uL (0-0.2); Basophils % (auto) 0.2 %; Eosinophils # (auto) 0.02 K/uL (0-0.5); Eosinophils % (auto) 0.2 %; Hematocrit (blood only) 38.8 % (37-47); Immature Granulocytes # (auto) 0.02 K/uL (0.00-0.02); Immature Granulocytes % (auto) 0.2 %; Lymphocytes # (auto) 2.46 K/uL (1.2-3.4); Lymphocytes % (auto) 21.5 %; Mean Corpuscular Hemoglobin 31.2 pg (25-34); Mean Corpuscular Hgb Conc 33.5 g/dL (32-36); Mean Platelet Volume 9.7 fL (7.4-10.4); Neutrophils # (auto) 8.13 K/uL (1.4-6.5); Neutrophils % (auto) 70.9 %; Platelet Count 272 K/uL (130-400); RDW Coefficient of Variation 13.9 % (11.5-14.5); RDW Standard Deviation 47.3 fL (36.4-46.3); Red Blood Count 4.17 M/uL (4.2-5.4); White Blood Count 11.45 K/uL (4.8-10.8)
[2021-05-17 05:23] LABS: BUN Creatinine Ratio 8.5 (10-20); Calcium 8.9 mg/dl (8.5-10.1); Creatinine Clr Calc Pharmacy 83.1 ml/min; Est GFR (African American) 84.2 ml/min; Est GFR (Non-African American) 72.7 ml/min; Potassium 3.7 mmol/L (3.5-5.1)
[2021-05-17 05:26] LABS: Partial Thromboplastin Ratio 2.4
[2021-05-17 05:28] LABS: Partial Thromboplastin Time 62.7 Seconds (21.0-31.0)
[2021-05-17] MEDS: lisinopril 20 MG TAB PO SCH (08:26)
[2021-05-17] MEDS: ASPIRIN 81 MG ECTAB PO SCH (08:26)
[2021-05-17] MEDS: METOPROLOL TARTRATE 25 MG TAB PO SCH ×2 (08:27→20:15)
--- NOTE | 2021-05-17 09:22 | Ultrasound Report ---
PELVIC ULTRASOUND, TRANSABDOMINAL AND TRANSVAGINAL HISTORY: Abnormal endometrium on recent CT. Follow-up. Endometrial Lesion COMPARISON: Abdomen and pelvis CT 05/16/2021. Pelvic ultrasound 01/19/2013. FINDINGS: Uterus: 7.8 x 3.6 x 3.2 cm. No uterine masses. Endometrial stripe: 9 mm in thickness. There is a 1.1 x 0.9 x 0.8 cm hypoechoic nodule within the fun dus of the endometrium. This remains unchanged compared to a 2013 pelvic ultrasound. Right ovary: Normal in size and demonstrates normal color flow. Left ovary: Obscured by overlying bowel gas. Miscellaneous:No pelvic free fluid. IMPRESSION: 1. An 11 x 9 x 8 mm hypoechoic nodule at the fundus of the endometrium. This may represent a submucos al fibroid or polyp. This remains unchanged compared to a 2013 pelvic ultrasound. Follow-up gynecolog ic consultation recommended. 2. Normal right ovary. 3. The left ovary was obscured by overlying bowel gas. ACT 112: Negative or not required by law. Electronically signed by: Jake Robertson M.D. 05/17/2021 9:21 AM
--- NOTE | 2021-05-17 10:40 | Urology Progress Note ---
Date of Service May 17, 2021 Assessment & Plan (1) Renal infarct: Plan: 50yo F with abdominal pain admitted with right renal infarct. - Plan of care and imaging reviewed with Dr. Acosta, on-call urologist. - CTAP noted an area of decreased attenuation within the inferior pole right kidney measuring up to 4.5 cm and suggestive of an acute renal infarct. - She is afebrile, VSS, non-toxic appearing. - Labs reviewed- Wbc 11.45, Creatinine 0.93. - UA on presentation negative; Urine culture pending - IV Ceftriaxone given in ED on admission. - Voiding without issue. Continue to monitor, bladder scan as needed. - No acute intervention is warranted. - Continue supportive care, anticoagulation, and hypercoagulable work-up per primary team. - will sign-off, please contact us with any further questions or concerns. Admission and Anticipated Discharge Date Admission Date: May 16, 2021 Supervising Physician Co-Signing Physician Notes I have discussed Ms. Arzola's case with Inna Hodgson NP and agree with the above documentation. Unfortunately there is no way to return blood flow to the infarcted portion of her right kidney. For now would recommend pain control and agree with hypercoagulability workup. Subjective Pt examined at bedside in the ED. Awake, resting in bed on arrival. No acute distress. No fevers overnight. Reports her pain has significantly improved and is well controlled at present. Tolerating PO diet. Some mild nausea, no vomiting. Voiding without issue. Denies hematuria and dysuria. Review of Systems Constitutional: as per Subjective / HPI Gastrointestinal: as per Subjective / HPI Genitourinary: as per Subjective / HPI Physical Exam Constitutional: well developed and well nourished; no acute distress Respiratory: normal respiratory effort and able to speak in complete se ntences; no labored breathing and no audible wheezes Gastrointestinal (Abdomen): Inspection/Auscultation: abdomen normal to inspection; abdomen not distended Musculoskeletal: Head/Neck/Chest: normocephalic Skin: No visible rashes or lesions to exposed skin areas Neurologic: moves all extremities and awake Psychiatric: Orientation: alert, oriented x 3 and cooperative Results & Data ([facility]) Vital Signs (Past 12 Hours) Vital Signs Temp Pulse Resp BP Pulse Ox 05/17/21 08:16 36.6 C 85 17 122/90 96 05/17/21 06:35 67 18 123/82 98 05/17/21 02:52 83 16 122/84 94 05/17/21 01:00 90 16 102/76 93 05/16/21 23:05 96 H 18 114/70 96 PG Care Time/CCT Total # of Minutes Spent Total Time Spent with Patient: Total time spent is greater than 50% in coordination of care (as documented) at patient's floor/unit and/or counseling patient: Coding Level of Care Code 54317 Subseq Hosp Care Lvl 2 Diagnoses Renal infarct N28.0
[2021-05-17 10:45] LABS: Partial Thromboplastin Ratio 2.1
[2021-05-17 10:53] LABS: Partial Thromboplastin Time 54.1 Seconds (21.0-31.0)
--- NOTE | 2021-05-17 14:31 | XCELERA ---
[id number]
[2021-05-17 17:47] LABS: Partial Thromboplastin Ratio 1.9
--- NOTE | 2021-05-17 17:48 | Hospitalist Progress Note ---
Date of Service May 17, 2021 Assessment & Plan (1) Renal infarct: Plan: 50yo Female here with Abdominal Pain. PMH CAD with 4 stents, HTN, HLD, RBBB. RENAL INFARCT: - Pt presented with abdominal pain on 05/11 and again on 05/15 but she feels the pain was worse on the 05/11. - CT with contrast - focal area of decreased attentuation within the inferior pole R kidney measuring 4.5 cm suggestive of an acute renal infarct - no obvious arterial occlusion or vascular injury identified -- Discussed with nephrology and vascular - given presentation several days ago and review of uptodate she is outside window to consider revascularization. Given no obvious arterial occlusion a CTA would be of limited value now unless worsening abdominal pain. Given her CAD question possible plaque from atherosclerosis may be the culprit and could benefit from ASA/Plavix - However do not know the underlying etiology - per studies A Fib seems to be the biggest contributor vs hypercoaguable state vs idiopathic - Will continue heparin gtt - attempted to get cost of Eliquis as uptodate recommends this over Xarelto due to less renal clearance. However, insurance prefers Xarelto and still awaiting cost. Given the infarct there is risk for atrophic kidney and eventual renal dysfunction and would like to avoid that by utilizing drugs that have less renal impact. Will F/U on this - Continue ASA daily - WBC was elevated at 15 but trending down to 11 and will repeat CBC in AM - a febrile and in normal state of health minus abdominal pain; no risk factors for endocarditis and do not suspect this is septic emboli -- Was given Rocephin in ED so BCx may be limited value but should obtained if becomes febrile - No known malignancy - mammogram July 2020 with no concerns; Endometrial Lesion as below - Minimal pain - continue Tylenol PRN - Plan for Holter possibly x 1 month to R/O A Fib - Will need to arrange F/U with Dr. Pruitt - review of hypercoagulable workup - Appreciate Urology input ENDOMETRIAL LESION: - U/S - fundal nodule of the endometrium - this is unchanged from 2012 and likely represents submucosal fibroid or polyp - patient reports she was having this monitored in the past and was thought to be a fibroid - Can continue to F/U with gynecology - Patient is in menopause - LMP x 6 years ago CAD S/P PCI with HTN/HLD: - Continue ASA, high dose Atorvastatin, Lisinopril, and Metoprolol - Did have echo in Apr 2022 - EF 60-65% no significant valvular abnormalities; no wall motion abnormalities - Did perform limited echo - no PFO - Follows with Dr. Buchanan Monitor on heparin and CT imaging for any worsening abdominal pain as infarct area could be prone to bleeding. Will resolve the AC issue tomorrow. Likely can return home tomorrow (2) Lesion of endometrium: (3) CAD (coronary artery disease): (4) Hypertension: (5) Dyslipidemia: Admission and Anticipated Discharge Date Admission Date: May 16, 2021 Subjective No acute events overnight. Some flank pain this AM but no pain the rest of the day. No signs of bleeding. Feels in her normal state of health. Tolerating a diet without issue. Review of Systems Review of Systems: All systems reviewed & are unremarkable except as noted in Subjective Results & Data Results & Data ([facility]) Vital Signs (Past 12 Hours) Vital Signs Temp Pulse Resp BP Pulse Ox 05/17/21 14:00 36.9 C 73 16 136/89 99 05/17/21 08:16 36.6 C 85 17 122/90 96 05/17/21 06:35 67 18 123/82 98 PG Care Time/CCT Total # of Minutes Spent Total Time Spent with Patient: Total time spent is greater than 50% in coordination of care (as documented) at patient's floor/unit and/or counseling patient: Coding Level of Care Code 97704 Subseq Hosp Care Lvl 3 Diagnoses Renal infarct N28.0 Lesion of endometrium N85.9 CAD (coronary artery disease) I25.10 Hypertension I10 Dyslipidemia E78.5
[2021-05-17 18:18] LABS: Partial Thromboplastin Time 50.7 Seconds (21.0-31.0)
[2021-05-17] MEDS: HEPARIN SODIUM/DEXTROSE 25,000 UNITS/500 ML BAG IV SCH (18:37)
--- NOTE | 2021-05-17 20:14 | Billing Data ---
Date of Service May 17, 2021 Coding Level of Care Code 29601 Initial Inpt Care Lvl 3
[2021-05-17] MEDS ORDERED: ATORVASTATIN 40 MG TAB PO SCH (21:00)
[2021-05-18 06:18] LABS: Hematocrit (blood only) 39.5 % (37-47); Hemoglobin 13.3 g/dL (12.0-16.0); Mean Corpuscular Hemoglobin 31.4 pg (25-34); Mean Corpuscular Hgb Conc 33.7 g/dL (32-36); Mean Corpuscular Volume 93.4 fL (80-100); Platelet Count 273 K/uL (130-400); RDW Coefficient of Variation 13.8 % (11.5-14.5); RDW Standard Deviation 47.2 fL (36.4-46.3); Red Blood Count 4.23 M/uL (4.2-5.4); White Blood Count 9.52 K/uL (4.8-10.8)
[2021-05-18 06:43] LABS: Partial Thromboplastin Ratio 2.2
[2021-05-18 06:47] LABS: Partial Thromboplastin Time 57.1 Seconds (21.0-31.0)
[2021-05-18 06:56] LABS: BUN Creatinine Ratio 9.7 (10-20); Est GFR (African American) 85.3 ml/min; Est GFR (Non-African American) 73.6 ml/min; Potassium 4.1 mmol/L (3.5-5.1)
[2021-05-18] MEDS: lisinopril 20 MG TAB PO SCH (07:58)
[2021-05-18] MEDS: METOPROLOL TARTRATE 25 MG TAB PO SCH (07:58)
[2021-05-18] MEDS: ASPIRIN 81 MG ECTAB PO SCH (07:59)
[2021-05-18] MEDS ORDERED: RIVAROXABAN 15 MG TAB PO SCH (12:15)
--- NOTE | 2021-05-18 16:58 | Discharge Summary ---
Date of Service May 18, 2021 Admission HPI Per Admitting Provider 50yo Female here with Abdominal Pain. PMH CAD with 4 stents, HTN, HLD, RBBB. Patient seen at bedside calm comfortable cooperative. Patient states last week she had abd pain on 05/11, thought it was food poisoning, it disappeared after a few hours. Her abd pain occurred again yesterday, slowly got worse/more painful, started in her front RLQ later radiated to her back. She complained of nausea without vomiting, chills with slight fever, denies blood in urine, denies weakness or rashes. She states this has never happened before, denies history of coagulability disorders. States her LMP was 6 years ago, is in menopause, not on control, denies vaginal bleeding. She states she takes her medication regularly, denies smoking, rare yearly alcohol, 2 cups coffee daily, denies illicit drug use. Only allergies are seasonal. Patient states family history of heart disease on mother and father's side, denies FH of stroke or coagulability disorders. Patient recently hospitalized 05/03 dc'd 05/04 for chest pain possible vasospasms v. small vessel disease improved with nitro, cath without new significant obstructing lesions. Principal Diagnosis Renal Infarct Discharge Exam PHYSICAL EXAM General Appearance: WDWN in NAD who is A&O x 3 HEENT: Head is normocephalic/atraumatic; Hearing grossly intact; Mucous me mbranes moist Neck: Supple; Trachea midline; Neg JVD Heart: RRR with no M/G/R Lungs: CTA in all lung alejandre bilaterally; Respirations unlabored; Neg accessory muscle use Abdomen: Soft, non-tender, non-distended; Positive BS x 4 quadrants Extremities: Neg cyanosis or edema Neurological: Speech clear; Gross motor/sensory function intact; Neg focal neurologic deficits Psychiatric: Appropriate mood/affect Skin: Normal Color; Warm/Dry Discharge Data Allergies Allergy/AdvReac Type Severity Reaction Status Date / Time No Known Drug Allergies Allergy Verified 05/03/21 10:43 Consultations 05/16/21 22:02 ED Decision to Admit Stat Ordered Studies Abdomen/Pelvis CT 05/16/21 19:[address] WITH IV CONTRAST CT DOSE: 1101.62 mGy.cm HISTORY: Acute right lower quadrant abdominal pain with nausea RLq pain, nausea TECHNIQUE: Multiaxial CT images of the abdomen and pelvis were performed following the IV administration of 95 cc of Optiray, A dose lowering technique was utilized adhering to the principles of ALARA. COMPARISON STUDY: Chest radiograph 05/03/2021 FINDINGS: Coronary artery calcifications. The imaged inferior cardiac chambers are unremarkable. Clear lung bases. There is no pneumatosis or pneumoperitoneum. Unremarkable spleen, pancreas, gallbladder and adrenal glands. 6 mm hypodensity of the right hepatic lobe on image 81 series 3 is suggestive of a probable cyst, however is too small to adequately characterize. Patent portal vein. Unremarkable left kidney. There is a wedge-shaped area of decreased enhancement involving the inferior right kidney extending to the capsule overall measuring up to approximately 4.5 cm. There is adjacent perinephric stranding. No hydronephrosis or obvious arterial occlusion or injury identified. Unremarkable urinary bladder. There is mild thickening of the fundal endometrium measuring up to approximately 1.2 cm transversely with a focal area of polypoid increased attenuation within the endometrial cavity measuring 1.4 cm. No adnexal mass lesion. Atherosclerosis of the aorta without aneurysm. No adenopathy. There are a few nonenlarged lymph nodes adjacent to the proximal stomach. No bowel obstruction or bowel wall thickening. Colonic diverticulosis. Normal appendix. Unremarkable soft tissues. No acute fracture. Moderate intervertebral disc space narrowing with posterior disc osteophyte complex at L5-S1. IMPRESSION: 1. Focal area of decreased attenuation within the inferior pole right kidney measuring up to approximately 4.5 cm is suggestive of an acute renal infarct. Focal pyelonephritis considered less likely. No obvious arterial occlusion or vascular injury identified. 2. No bowel obstruction or bowel wall thickening. Normal appendix. 3. Colonic diverticulosis. 4. Polypoid lesion versus blood products within the fundal endometrial cavity. This could be correlated with a nonemergent follow-up pelvic ultrasound. 5. Coronary artery calcifications. ACT 112: Negative or not required by law. The above report was generated using voice recognition software. It may contain grammatical, syntax or spelling errors. Electronically signed by: Roni Palmer M.D. 05/16/2021 8:51 PM Pelvis Ultrasound 05/17/21 02:38 PELVIC ULTRASOUND, TRANSABDOMINAL AND TRANSVAGINAL HISTORY: Abnormal endometrium on recent CT. Follow-up. Endometrial Lesion COMPARISON: Abdomen and pelvis CT 05/16/2021. Pelvic ultrasound 01/19/2013. FINDINGS: Uterus: 7.8 x 3.6 x 3.2 cm. No uterine masses. Endometrial stripe: 9 mm in thickness. There is a 1.1 x 0.9 x 0.8 cm hypoechoic nodule within the fundus of the endometrium. This remains unchanged compared to a 2013 pelvic ultrasound. Right ovary: Normal in size and demonstrates normal color flow. Left ovary: Obscured by overlying bowel gas. Miscellaneous:No pelvic free fluid. IMPRESSION: 1. An 11 x 9 x 8 mm hypoechoic nodule at the fundus of the endometrium. This may represent a submucosal fibroid or polyp. This remains unchanged compared to a 2013 pelvic ultrasound. Follow-up gynecologic consultation recommended. 2. Normal right ovary. 3. The left ovary was obscured by overlying bowel gas. ACT 112: Negative or not required by law. Electronically signed by: Jake Robertson M.D. 05/17/2021 9:21 AM Transvaginal US 05/17/21 02:38 PELVIC ULTRASOUND, TRANSABDOMINAL AND TRANSVAGINAL HISTORY: Abnormal endometrium on recent CT. Follow-up. Endometrial Lesion COMPARISON: Abdomen and pelvis CT 05/16/2021. Pelvic ultrasound 01/19/2013. FINDINGS: Uterus: 7.8 x 3.6 x 3.2 cm. No uterine masses. Endometrial stripe: 9 mm in thickness. There is a 1.1 x 0.9 x 0.8 cm hypoechoic nodule within the fundus of the endometrium. This remains unchanged compared to a 2013 pelvic ultrasound. Right ovary: Normal in size and demonstrates normal color flow. Left ovary: Obscured by overlying bowel gas. Miscellaneous:No pelvic free fluid. IMPRESSION: 1. An 11 x 9 x 8 mm hypoechoic nodule at the fundus of the endometrium. This may represent a submucosal fibroid or polyp. This remains unchanged compared to a 2013 pelvic ultrasound. Follow-up gynecologic consultation recommended. 2. Normal right ovary. 3. The left ovary was obscured by overlying bowel gas. ACT 112: Negative or not required by law. Electronically signed by: Jake Robertson M.D. 05/17/2021 9:21 AM Hospital Course (1) Renal infarct: 50yo Female here with Abdominal Pain. PMH CAD with 4 stents, HTN, HLD, RBBB. RENAL INFARCT: - Pt presented with abdominal pain on 05/11 and again on 05/15 but she feels the pain was worse on the 05/11. - CT with contrast - focal area of decreased attentuation within the inferior pole R kidney measuring 4.5 cm suggestive of an acute renal infarct - no obvious arterial occlusion or vascular injury identified -- Discussed with nephrology and vascular - given presentation several days ago and review of uptodate she is outside window to consider revascularization. Given no obvious arterial occlusion a CTA would be of limited value now unless worsening abdominal pain. Given her CAD question possible plaque from atherosclerosis may be the culprit and could benefit from ASA/Plavix - However do not know the underlying etiology - per studies A Fib seems to be the biggest contributor vs hypercoaguable state vs idiopathic - Initially placed on heparin gtt - attempted to get cost of Eliquis as upda recommends this over Xarelto due to less renal clearance. However, insurance prefers Xarelto however copay is still $132 for Xarelto. Given the infarct there is risk for atrophic kidney and eventual renal dysfunction and would like to avoid that by utilizing drugs that have less renal impact. Reviewed case studies with Xarelto and given her current renal function can utilize but will need to monitor. Given the copay (gave copay card for this one) may ultimately need transitioned to Coumadin - Continue ASA daily - WBC was elevated at 15 but trending down to 11 and thne 9 on discharge - afebrile and in normal state of health minus abdominal pain; no risk factors for endocarditis and do not suspect this is septic emboli -- Was given Rocephin in ED x 1 dose so BCx may be limited value but should obtained if becomes febrile -- Even though transthoracic echo does not rule out endocarditis there was no questionable findings on valves; limited echo with no PFO - No known malignancy - mammogram July 2020 with no concerns; Endometrial Lesion as below; could consider CT abdomen/nearing need for colonoscopy - No pain on discharge - can continue Tylenol PRN - Plan for Holter possibly x 1 month to R/O A Fib - Rx sent through case management - Consider F/U with Dr. Pruitt - review of hypercoagulable workup (this has been sent and pending) - Appreciate Urology input - no intervention needed - Did read a study of patient treated with anticoagulation and those who were not and seemed to have similar outcomes - this could be atherosclerotic plaque and maybe ASA/Plavix would be the main treatment however cannot rule out embolic right now and may need to consider treatment x 6 months ENDOMETRIAL LESION: - U/S - fundal nodule of the endometrium - this is unchanged from 2012 and likely represents submucosal fibroid or polyp - patient reports she was having this monitored in the past and was thought to be a fibroid - Can continue to F/U with gynecology - Patient is in menopause - LMP x 6 years ago CAD S/P PCI with HTN/HLD: - Continue ASA, high dose Atorvastatin, Lisinopril, and Metoprolol - Did have echo in Apr 2022 - EF 60-65% no significant valvular abnormalities; no wall motion abnormalities - Did perform limited echo - no PFO - Follows with Dr. Buchanan Has follow-up with PCP on 25 May (2) Hypertension: (3) CAD (coronary artery disease): (4) Stented coronary artery: (5) Dyslipidemia: (6) Right lateral abdominal pain: (7) Lesion of endometrium: Total Time Total Time Spent Total Time Spent (In Minutes): Spent greater than 30 minutes preparing patient for discharge. This includes discussion with patient/family, assessment, intervention, medication reconciliation, and coordination of care. Discharge Plan Discharge Items Patient Disposition: Home - Self-Care Reason For Visit: ABDOMINAL PAIN Discharge Diagnosis: Renal Infarction Activity: Resume your previous activity Non-emergency contact: Primary Care Provider Call non-emergency contact if: you have any medication questions, your symptoms worsen and you have a fever Follow-up/Referrals: Anahi Jose CRNP [Primary Care Provider] - (Already has F/U arranged on the ) Diet: Heart Healthy Addtl Attending Provider Instructions: Renal Infarct: - You were admitted due to abdominal pain and found to have a 4.5 cm infarct of the right kidney. It is not completely certain why you developed this but some additional testing needs to be completed to rule out certain causes - I will provide you with the uptodate information on this which explains what we are looking at - We first need to rule out a blood clot cause such as atrial fibrillation (a type of heart rate) and genetic factors that could make you prone to clotting (these labs are send outs and can take a week or so to come back) - There is also a change this is due to your athersclerosis which is plaque that could have broken off and traveled. This plaque is what can build in the heart vessels warranting stents and such. -- Thankfully you are on good medication for this (Atorvastatin and Aspirin) which you would want to continue - I sent in a prescription to get a heart monitor sent to your house which you will wear and follow the directions on it with results to your sheetmetal patternmaker (Dr. Buchanan) - If you have pain recommend using Tylenol while on blood thinners and aspirin. If you have worsening pain please get evaluated. - Typically we are looking at anticoagulation for 6 months unless an underlying cause dictates otherwise. Sometimes these cases we can not find a cause. If no cause is found please talk with your sheetmetal patternmaker or family doctor as maybe aspirin and plavix to help reduce plaque further can be considered. - If you develop a fever please get evaluated. Sometime infections can set in and cause septic emboli (clots) however no signs of infection at this time. - You are going to be placed on Xarelto as your blood thinner. This is a pill. Since we cannot rule out this was a clot we are going to cover you as follows -- Take Xarelto 15 mg twice a day (with food) for the first 21 days. On day 22 take Xarelto 20 mg daily. Possibly for 6 months unless discussed with your doctors due to your additional work-up -- PLEASE TALK WITH YOUR DOCTOR ABOUT THE ADDITIONAL PRESCRIPTION STARTING AT DAY 22 DUE TO THE COPAY. THEY MAY BE ABLE TO DO AN AUTHORIZATION TO GET THIS APPROVED ENDOMETRIAL LESION: - The ultrasound shows this is unchanged from 2013 and likely represents submucosal fibroid or polyp - Can continue to follow-up with gynecology Heart Disease: - Continue aspirin, high dose Atorvastatin, Lisinopril, and Metoprolol - Follow with Dr. Buchanan as needed Pending Studies at Discharge: Yes Studies:: Hypercoaguable work-up Stand-Alone Forms: My [employer], Smoking Cessation Medications and DC Order Prescriptions: New Xarelto 15 mg tablet 15 mg PO BID 21 Days Qty: 42 RF: 0 Continued aspirin 81 mg tablet,delayed release (DR/EC) 81 mg PO QAM RF: 0 atorvastatin 80 mg tablet 80 mg PO QPM Qty: 90 RF: 3 metoprolol tartrate 25 mg tablet 12.5 mg PO BID Qty: 90 RF: 3 nitroglycerin [Nitrostat] 0.4 mg tablet, sublingual 0.4 mg SL Q5M PRN (Reason: chest pain) Qty: 25 RF: 5 lisinopril 20 mg tablet 20 mg PO QAM RF: 0 Discharge Orders: Discharge Order (Routine); Ordered 05/18/21 Ordered By: Aleksey Knott Admission Data Admit Date/Time: 05/16/21 23:45 Attending Provider: Aleksey Knott Admit Provider: Krysta Madrid Primary Care Provider: Anahi Jose Other Providers: Tristan Lainez Other Interventions: Discharge Summary Assessment (RN) Last Done: 05/18/21 14:12 Supervising Physician Co-Signing Physician Notes Attending Attestation and Discharge Note - Pt seen/examined, chart reviewed, care plan d/w FELISHA Doherty. I agree w/ the mora components of her documentation. Nallely 50yo female - recent hospital stay for chest pain s/p heart cath with no new focal lesions requiring intervention (Has known h/o CAD with prior stents). Presented with right-sided abd pain - found to have a right renal infarct on CT a/p. Admitted for pain control and w/u of this finding. Exact etiology uncertain. Limited echo without PFO or embolus. CTA a/p without focal stenosis of arterial tree. No a.fib on tele. Hypercoagulable panel sent. After much discussion decision was made to anticoagulate. Initially Eliquis was selected but not covered by insurance. Thus, will Rx with xarelto 15mg BID x 21 days, then 20mg once daily thereafter. Agree with 30-day event monitor to r/o PAF. Could she have had an embolic event in the setting of recent heart cath? If not embolic - perhaps simply due to atherosclerosis of renal artery. Discharge exam - gen - NAD, pleasant neck - no JVD heart - RRR, s1 s2, no murmur lungs - CTA b/l back - no flank tenderness to palpation abd - soft NT ND BS+ ext - no edema, pulses 2+ b/l Will need f/u of hypercoagulable panel post-discharge. Aleksey Knott MD Coding Level of Care Code D/C DAY MANAGEMENT >30 MINS Diagnoses Renal infarct N28.0 Hypertension I10 CAD (coronary artery disease) I25.10 Stented coronary artery Z95.5 Dyslipidemia E78.5 Right lateral abdominal pain R10.9 Lesion of endometrium N85.9
[2021-05-21 03:56] LABS: Anti Cardiolipin Ab IgG <2.0 GPL-U/mL; Anti Cardiolipin Ab IgM 3.4 MPL-U/mL; B2 Glycoprotein IgG <2.0 U/mL (<20.0); B2 Glycoprotein IgM 3.8 U/mL (<20.0)
[2021-05-21 20:01] LABS: Factor 5 Mutation NEGATIVE
[2021-05-22 00:16] LABS: Anti-Thrombin III Activity 113 % normal (80-135); Protein S Functional(Activity) 80 % (60-140)
== END 2021-05-18 14:41 | disposition home or self-care (01) | DRG 699 ==
LOC: ED 18:48 → EDINP 23:45 → SUATTDRO 23:45 → EDINP 05-17 02:46